=== PATIENT | male | born 1975 | race Caucasian/White ===

== ENCOUNTER 2019-07-28 20:41 | Inpatient (IN) | payer OTHER ==
[~2019-07-28] VITALS: Ht 180.3 cm; Wt 113.0 kg
[2019-07-28 20:59] LABS: BASO # 0.1 x10^3/uL (0.0-0.2); BASO % 1 % (0-3); EOS # 0.2 x10^3/uL (0.0-0.7); EOS % 1 % (0-3); HEMATOCRIT 43.9 % (39.0-53.0); HEMOGLOBIN 15.4 g/dL (13.0-17.5); LYMPH # 2.2 x10^3/uL (1.0-4.8); LYMPH % 13 % (24-48); MEAN CORPUSCULAR HEMOGLOBIN 32 pg (25-35); MEAN CORPUSCULAR HGB CONC 35 g/dL (31-37); MEAN CORPUSCULAR VOLUME 90 fL (79-100); MONO # 1.3 x10^3/uL (0.0-1.1); MONO % 8 % (0-9); NEUT # 13.6 x10^3/uL (1.8-7.7); NEUT % 78 % (31-73); PLATELET COUNT 297 x10^3/uL (140-400); RED BLOOD COUNT 4.87 x10^6/uL (4.30-5.70); RED CELL DISTRIBUTION WIDTH 13.4 % (11.5-14.5); WHITE BLOOD COUNT 17.4 x10^3/uL (4.0-11.0)
[2019-07-28] MEDS ORDERED: HEPARIN for IV BOLUS 10,000 UNIT/10 ML VIAL. IV ONE (21:00)
[2019-07-28] MEDS ORDERED: ONDANSETRON PF 4 MG/2 ML VIAL. IVP ONE (21:00)
[2019-07-28] MEDS ORDERED: ASPIRIN 325 MG TABLET PO ONE ×2 (21:00→22:30)
[2019-07-28] MEDS ORDERED: METOPROLOL TARTRATE 5 MG/5 ML VIAL. IVP ONE (21:00)
[2019-07-28] MEDS ORDERED: IV NORMAL SALINE 1000ML BAG 1,000 ML IV ONE (21:00)
[2019-07-28] MEDS ORDERED: fentaNYL PF VIAL 100 MCG/2 ML VIAL IV ONE ×3 (21:00→22:00)
--- NOTE | 2019-07-28 21:01 | PHYS DOC ---
Past Medical History Past Medical History: Alcoholism (now with sobriety), High Cholesterol, H ypertension Past Surgical History: No Surgical History Smoking Status: Current Every Day Smoker Additional Information: 1 ppd Alcohol Use: Sober Drug Use: None General Adult EDM: Chief Complaint: CHEST PAIN HPI: HPI: Patient is a 44 year old male presents with report of sudden substernal chest pain with radiation to his left arm which occurred approximately 2 hours ago. Patient reports he was working on his lawnmower in his garage at the time. Denies that he was not necessarily exerting himself. Patient reports associated diaphoresis. Reports cardiac risk factors for HTN, hyperchol, and smoking. Denies leg swelling or calf tenderness. Denies trauma. Review of Systems: Review of Systems: Constitutional: Denies fever or chills Eyes: Denies redness or eye pain HENT: Denies nasal congestion or sore throat Respiratory: Denies cough or shortness of breath Cardiovascular: Reports chest pain; denies palpitations GI: Denies abdominal pain; reports nausea : Denies dysuria or hematuria Musculoskeletal: Denies back pain or joint pain Integument: Denies rash or skin lesions; denies diaphoresis Neurologic: Denies headache, focal weakness or sensory changes Complete systems were reviewed and found to be within normal limits, except as documented in this note. Current Medications: Current Medications Medications (Trade) Dose Ordered Sig/Katarina Start Time Stop Time Status Last Admin Dose Admin Aspirin (Katelyn Aspirin) 325 mg 1X ONCE 07/28/19 21:00 07/28/19 21:01 UNV Fentanyl Citrate (Fentanyl 2ml Vial) 50 mcg 1X ONCE 07/28/19 21:00 07/28/19 21:01 UNV 07/28/19 20:58 50 MCG Heparin Sodium (Porcine) (Heparin Sodium) 4,000 unit 1X ONCE 07/28/19 21:00 07/28/19 21:01 UNV 07/28/19 20:59 4,000 UNIT Metoprolol Tartrate (Lopressor Vial) 10 mg 1X ONCE 07/28/19 21:00 07/28/19 21:01 UNV Ondansetron HCl (Zofran) 4 mg 1X ONCE 07/28/19 21:00 07/28/19 21:01 UNV 07/28/19 20:58 4 MG Sodium Chloride 1,000 ml @ 1,000 mls/hr 1X ONCE 07/28/19 21:00 07/28/19 21:59 UNV Physical Exam: PE: Constitutional: Well developed, well nourished, uncomfortable HENT: Normocephalic, atraumatic Eyes: Conjunctiva normal, no discharge Neck: Normal range of motion, no tenderness, supple Cardiovascular: Heart rate normal, regular rhythm Lungs & Thorax: Bilateral breath sounds clear to auscultation, no wheezing Abdomen: Soft, no tenderness, no guarding/rebound tenderness/distention Skin: Warm, dry, no erythema, no rash Extremities: No tenderness, ROM intact, no edema Neurologic: Alert and oriented X 3, no focal deficits noted Psychologic: Affect normal, judgment normal Current Patient Data: Vital Signs: Vital Signs Date Time Temp Pulse Resp B/P (MAP) Pulse Ox O2 Delivery O2 Flow Rate FiO2 07/28/19 20:58 20 99 Room Air EKG: EKG: @2046 NSR at 83, significant ST elevation inferior leads with reciprocal depression in V2-V4 Radiology/Procedures: Radiology/Procedures: PROCEDURE: CHEST AP ONLY CHEST AP ONLY INDICATION: Reason: chest pain / Spl. Instructions: / History: . COMPARISON STUDY: None. FINDINGS: Lungs: Normal lung volume. No pulmonary mass or consolidation. The tracheobronchial tree and hilar structures are normal. Pleura: No pleural effusion or pneumothorax. Heart and Mediastinum: The cardiomediastinal silhouette is normal. The great vessels of the thorax are normal. IMPRESSION: No acute cardiopulmonary process. Electronically signed by: Zaki Cruz MD (07/28/2019 9:32 PM) [id number] Course & Med Decision Making: Course & Med Decision Making Pertinent Labs and Imaging studies reviewed. (See chart for details) Patient presents with acute chest pain with associated nausea and diaphoresis. Significant cardiac risk factors of hypertension, hypercholesterolemia, and smoking history. EKG with obvious ST elevation in inferior leads with reciprocal changes. Code STEMI called. IV heparin and aspirin initiated. Fentanyl and Zofran provided for pain and nausea. Labs obtained and posted to chart. Chest x-ray without acute process. Discussed case with Dr. Oakes (cardiology) with plan for emergent cardiac cath. Patient requiring admission for further evaluation and treatment. Discussed with Dr. Banuelos (hospitalist) who is in agreement with admission. Discussed findings and plan with patient, who acknowledges understanding and agreement. Dragon Disclaimer: Dragon Disclaimer: This electronic medical record was generated, in whole or in part, using a voice recognition dictation system. Departure Departure Impression: Primary Impression: STEMI (ST elevation myocardial infarction) Qualified Codes: I21.3 - ST elevation (STEMI) myocardial infarction of unspecified site Disposition: ADMITTED INPATIENT Admitting Physician: AIRAM Ruiz) Condition: CRITICAL Justicifation of Admission Dx: Justifications for Admission: Justification of Admission Dx: Yes UT: Acute STEMI Critical Care Time Critical care time was 30 minutes which includes time at bedside, spent in discussion of patient's care with specialists and/or family members, with interpretation of laboratory and/or radiological studies and is exclusive of procedures. LUPILLO FORTUNE DO Jul 28, 2019 21:01
[2019-07-28 21:09] LABS: PROTHROMBIN TIME PATIENT 13.1 SEC (11.7-14.0)
[2019-07-28 21:10] LABS: CALCIUM 9.3 mg/dL (8.5-10.1); CREATININE 1.4 mg/dL (0.7-1.3); GFR 54.6; POTASSIUM 3.8 mmol/L (3.5-5.1)
[2019-07-28] MEDS ORDERED: IODIXANOL 320 MG/ML 100 ML VIAL. ONE ×2 (21:12→21:57)
[2019-07-28] MEDS ORDERED: LIDOCAINE 1% PF 2 ML VIAL. ONE (21:12)
[2019-07-28] MEDS ORDERED: fentaNYL PF VIAL 100 MCG/2 ML VIAL ONE (21:13)
[2019-07-28] MEDS ORDERED: MIDAZOLAM HCL/PF 2 MG/2 ML VIAL. ONE (21:14)
[2019-07-28] MEDS ORDERED: VERAPAMIL 5 MG/2 ML VIAL. ONE (21:14)
[2019-07-28] MEDS ORDERED: HEPARIN for IV BOLUS 10,000 UNIT/10 ML VIAL. ONE (21:14)
[2019-07-28] MEDS ORDERED: NITROGLYCERIN 200 MCG/2 ML SYRINGE FOR CATH/VASC LAB. ONE (21:14)
[2019-07-28] MEDS ORDERED: LIDOCAINE 1% Multi-Dose 20 ML VIAL. ONE (21:14)
[2019-07-28 21:16] LABS: ALBUMIN 4.2 g/dL (3.4-5.0); ALBUMIN/GLOBULIN RATIO 1.1 (1.0-1.7); MAGNESIUM 1.7 mg/dL (1.8-2.4); TOTAL BILIRUBIN 0.2 mg/dL (0.2-1.0); TOTAL PROTEIN 8.1 g/dL (6.4-8.2)
[2019-07-28 21:19] LABS: % LYMPHS 10 % (24-48); % MONOS 7 % (0-10); % SEGS 83 % (35-66); PLT ESTIMATE ADEQUATE (ADEQUATE)
[2019-07-28 21:20] LABS: TOXIC GRANULATION SLIGHT
--- NOTE | 2019-07-28 21:32 | PDOC ---
MODERATE SEDATION ASSESSMENT RISKS/ALTERNATIVES Risks/Alternatives Risks and alternatives of this type of sedation and procedure discussed with: RISK/ALTERNATIVES: Patient H & P ON CHART H & P H & P on chart and reviewed for co-morbid conditions and appropriate labs. H&P ON CHART: Yes STATUS PREG STATUS ASSESSED: N/A MEDS/ALLERGIES REVIEWED Meds/Allergies Reviewed Medications and Allergies including time and route of recently administered narcotics and sedatives. MEDS/ALLERGIES REVIEWED: Yes ASA RATING ASA RATING: III AIRWAY ASSESSMENT Airway Assessment Airway patency, oral function limitations, presence of caps, crowns, dentures, partials, and ability to extend neck assessed. AIRWAY ASSESSMENT: Yes MALLAMPATI SCORE MALLAMPATI SCORE: II PRE-SEDATION ASSESSMENT PRE-SEDATION ASSESSMENT: Yes OZIEL EDMOND MD Jul 28, 2019 21:32
--- NOTE | 2019-07-28 21:32 | PDOC2 ---
CONSULT Date of Consult Date of Consult DATE: 07/28/19 TIME: 21:32 Reason for Consult Reason for Consult: Acute STEMI Referring Physician Referring Physician: Dr. Snow Identification/Chief Complaint Chief Complaint Chest pain Source Source: Chart review, Patient History of Present Illness Reason for Visit: 44-year-old male presented with retrosternal chest pressure radiating to left arm that started 2 hours prior to presentation when he was working on lawnmower in his garage. Complained of mild shortness of breath but denied any orthopnea/PND, palpitations or syncope. He denied any previous cardiac history. Past Medical History Past Medical History Hypertension Hyperlipidemia Family History Family History Hypertension Social History Social History Patient smokes 1 pack of cigarettes daily and has a previous history of alcohol abuse but denied any drug abuse. Current Problem List Problem List Problems Medical Problems: (1) STEMI (ST elevation myocardial infarction) Status: Acute Current Medications Current Medications Current Medications Aspirin (Katelyn Aspirin) 325 mg 1X ONCE PO Last administered on 07/28/19at 21:05; Start 07/28/19 at 21:00; Stop 07/28/19 at 21:06; Status DC Sodium Chloride 1,000 ml @ 1,000 mls/hr 1X ONCE IV Last administered on 07/28/19at 21:00; Start 07/28/19 at 21:00; Stop 07/28/19 at 21:59 Fentanyl Citrate (Fentanyl 2ml Vial) 50 mcg 1X ONCE IV Last administered on 07/28/19at 20:58; Start 07/28/19 at 21:00; Stop 07/28/19 at 21:06; Status DC Heparin Sodium (Porcine) (Heparin Sodium) 4,000 unit 1X ONCE IV Last administered on 07/28/19at 20:59; Start 07/28/19 at 21:00; Stop 07/28/19 at 21:06; Status DC Ondansetron HCl (Zofran) 4 mg 1X ONCE IVP Last administered on 07/28/19at 20:58; Start 07/28/19 at 21:00; Stop 07/28/19 at 21:06; Status DC Metoprolol Tartrate (Lopressor Vial) 10 mg 1X ONCE IVP Last administered on 07/28/19at 21:04; Start 07/28/19 at 21:00; Stop 07/28/19 at 21:06; Status DC Fentanyl Citrate (Fentanyl 2ml Vial) 50 mcg 1X ONCE IV ; Start 07/28/19 at 21:30; Stop 07/28/19 at 21:31; Status DC Iodixanol (Visipaque 320) 100 ml STK-MED ONCE .ROUTE ; Start 07/28/19 at 21:12; Stop 07/28/19 at 21:12; Status DC Lidocaine HCl (Xylocaine-Mpf 1% 2ml Vial) 2 ml STK-MED ONCE .ROUTE ; Start 07/28/19 at 21:12; Stop 07/28/19 at 21:12; Status DC Heparin Sodium/ Sodium Chloride 500 ml @ As Directed STK-MED ONCE .ROUTE ; Start 07/28/19 at 21:12; Stop 07/28/19 at 21:12; Status DC Midazolam HCl (Versed) 2 mg STK-MED ONCE .ROUTE ; Start 07/28/19 at 21:14; Stop 07/28/19 at 21:14; Status DC Heparin Sodium (Porcine) (Heparin Sodium) 10,000 unit STK-MED ONCE .ROUTE ; Start 07/28/19 at 21:14; Stop 07/28/19 at 21:14; Status DC Verapamil HCl (Verapamil) 5 mg STK-MED ONCE .ROUTE ; Start 07/28/19 at 21:14; Stop 07/28/19 at 21:14; Status DC Lidocaine HCl (Lidocaine 1% 20ml Vial) 20 ml STK-MED ONCE .ROUTE ; Start 07/28/19 at 21:14; Stop 07/28/19 at 21:14; Status DC Fentanyl Citrate (Fentanyl 2ml Vial) 100 mcg STK-MED ONCE .ROUTE ; Start 07/28/19 at 21:13; Stop 07/28/19 at 21:14; Status DC Nitroglycerin (Nitroglycerin) 200 mcg STK-MED ONCE .ROUTE ; Start 07/28/19 at 21:14; Stop 07/28/19 at 21:15; Status DC Allergies Allergies: Coded Allergies: No Known Drug Allergies (Unverified , 07/28/19) ROS PSYCHOLOGICAL ROS: No: Hallucinations Eyes: No Loss of vision HEENT: No: Epistaxis Respiratory: YES: Shortness of breath; No: Hemoptysis Cardiovascular: yes Chest Pain; No Palpitations Gastrointestinal: No Vomiting Genitourinary: No Hematuria Neurological: No Seizures Skin: No Rash Physical Exam General: Alert, Oriented X3 HEENT: Atraumatic Lungs: Clear to auscultation Heart: Regular rate Abdomen: Soft Extremities: No edema Neuro: Normal speech Psych/Mental Status: Mood NL Vitals VITALS Vital Signs Date Time Temp Pulse Resp B/P (MAP) Pulse Ox O2 Delivery O2 Flow Rate FiO2 07/28/19 21:04 80 193/126 07/28/19 20:58 20 99 Room Air Labs Labs Laboratory Tests Test 07/28/19 20:50 White Blood Count 17.4 x10^3/uL (4.0-11.0) Red Blood Count 4.87 x10^6/uL (4.30-5.70) Hemoglobin 15.4 g/dL (13.0-17.5) Hematocrit 43.9 % (39.0-53.0) Mean Corpuscular Volume 90 fL (79-100) Mean Corpuscular Hemoglobin 32 pg (25-35) Mean Corpuscular Hemoglobin Concent 35 g/dL (31-37) Red Cell Distribution Width 13.4 % (11.5-14.5) Platelet Count 297 x10^3/uL (140-400) Neutrophils (%) (Auto) 78 % (31-73) Lymphocytes (%) (Auto) 13 % (24-48) Monocytes (%) (Auto) 8 % (0-9) Eosinophils (%) (Auto) 1 % (0-3) Basophils (%) (Auto) 1 % (0-3) Neutrophils # (Auto) 13.6 x10^3/uL (1.8-7.7) Lymphocytes # (Auto) 2.2 x10^3/uL (1.0-4.8) Monocytes # (Auto) 1.3 x10^3/uL (0.0-1.1) Eosinophils # (Auto) 0.2 x10^3/uL (0.0-0.7) Basophils # (Auto) 0.1 x10^3/uL (0.0-0.2) Segmented Neutrophils % 83 % (35-66) Lymphocytes % 10 % (24-48) Monocytes % 7 % (0-10) Toxic Granulation Slight Platelet Estimate Adequate (ADEQUATE) Prothrombin Time 13.1 SEC (11.7-14.0) Prothromb Time International Ratio 1.0 (0.8-1.1) Activated Partial Thromboplast Time 33 SEC (24-38) Sodium Level 138 mmol/L (136-145) Potassium Level 3.8 mmol/L (3.5-5.1) Chloride Level 99 mmol/L (98-107) Carbon Dioxide Level 24 mmol/L (21-32) Anion Gap 15 (6-14) Blood Urea Nitrogen 19 mg/dL (8-26) Creatinine 1.4 mg/dL (0.7-1.3) Estimated GFR (Cockcroft-Gault) 54.6 BUN/Creatinine Ratio 14 (6-20) Glucose Level 163 mg/dL (70-99) Calcium Level 9.3 mg/dL (8.5-10.1) Magnesium Level 1.7 mg/dL (1.8-2.4) Total Bilirubin 0.2 mg/dL (0.2-1.0) Aspartate Amino Transf (AST/SGOT) 28 U/L (15-37) Alanine Aminotransferase (ALT/SGPT) 62 U/L (16-63) Alkaline Phosphatase 142 U/L (46-116) Creatine Kinase 213 U/L (39-308) Creatine Kinase MB (Mass) 2.8 ng/mL (0.0-3.6) Creatine Kinase MB Relative Index 1.3 % (0-4) Troponin I Quantitative 0.066 ng/mL (0.000-0.055) HL-Adj-O-Type Natriuretic Peptide 38 pg/mL (0-124) Total Protein 8.1 g/dL (6.4-8.2) Albumin 4.2 g/dL (3.4-5.0) Albumin/Globulin Ratio 1.1 (1.0-1.7) Lipase 72 U/L (73-393) Laboratory Tests Test 07/28/19 20:50 White Blood Count 17.4 x10^3/uL (4.0-11.0) Red Blood Count 4.87 x10^6/uL (4.30-5.70) Hemoglobin 15.4 g/dL (13.0-17.5) Hematocrit 43.9 % (39.0-53.0) Mean Corpuscular Volume 90 fL (79-100) Mean Corpuscular Hemoglobin 32 pg (25-35) Mean Corpuscular Hemoglobin Concent 35 g/dL (31-37) Red Cell Distribution Width 13.4 % (11.5-14.5) Platelet Count 297 x10^3/uL (140-400) Neutrophils (%) (Auto) 78 % (31-73) Lymphocytes (%) (Auto) 13 % (24-48) Monocytes (%) (Auto) 8 % (0-9) Eosinophils (%) (Auto) 1 % (0-3) Basophils (%) (Auto) 1 % (0-3) Neutrophils # (Auto) 13.6 x10^3/uL (1.8-7.7) Lymphocytes # (Auto) 2.2 x10^3/uL (1.0-4.8) Monocytes # (Auto) 1.3 x10^3/uL (0.0-1.1) Eosinophils # (Auto) 0.2 x10^3/uL (0.0-0.7) Basophils # (Auto) 0.1 x10^3/uL (0.0-0.2) Segmented Neutrophils % 83 % (35-66) Lymphocytes % 10 % (24-48) Monocytes % 7 % (0-10) Toxic Granulation Slight Platelet Estimate Adequate (ADEQUATE) Prothrombin Time 13.1 SEC (11.7-14.0) Prothromb Time International Ratio 1.0 (0.8-1.1) Activated Partial Thromboplast Time 33 SEC (24-38) Sodium Level 138 mmol/L (136-145) Potassium Level 3.8 mmol/L (3.5-5.1) Chloride Level 99 mmol/L (98-107) Carbon Dioxide Level 24 mmol/L (21-32) Anion Gap 15 (6-14) Blood Urea Nitrogen 19 mg/dL (8-26) Creatinine 1.4 mg/dL (0.7-1.3) Estimated GFR (Cockcroft-Gault) 54.6 BUN/Creatinine Ratio 14 (6-20) Glucose Level 163 mg/dL (70-99) Calcium Level 9.3 mg/dL (8.5-10.1) Magnesium Level 1.7 mg/dL (1.8-2.4) Total Bilirubin 0.2 mg/dL (0.2-1.0) Aspartate Amino Transf (AST/SGOT) 28 U/L (15-37) Alanine Aminotransferase (ALT/SGPT) 62 U/L (16-63) Alkaline Phosphatase 142 U/L (46-116) Creatine Kinase 213 U/L (39-308) Creatine Kinase MB (Mass) 2.8 ng/mL (0.0-3.6) Creatine Kinase MB Relative Index 1.3 % (0-4) Troponin I Quantitative 0.066 ng/mL (0.000-0.055) GS-Zbo-D-Type Natriuretic Peptide 38 pg/mL (0-124) Total Protein 8.1 g/dL (6.4-8.2) Albumin 4.2 g/dL (3.4-5.0) Albumin/Globulin Ratio 1.1 (1.0-1.7) Lipase 72 U/L (73-393) Assessment/Plan Assessment/Plan 1. Acute inferoposterior wall myocardial infarction based on clinical presentation and EKG findings. Patient has ongoing chest pain. We will proceed with emergent cardiac catheterization and primary PCI/stent placement. Risks a nd benefits were explained and he is agreeable. Start aspirin, heparin, beta- blockers and statins. 2. Hypertension: Well-controlled 3. Hyperlipidemia: Continue statin therapy 4. Tobacco abuse: Advised on smoking cessation Thank you for your consultation OZIEL EDMOND MD Jul 28, 2019 21:32
--- NOTE | 2019-07-28 21:35 | RAD ---
CHEST AP ONLY INDICATION: Reason: chest pain / Spl. Instructions: / History: . COMPARISON STUDY: None. FINDINGS: Lungs: Normal lung volume. No pulmonary mass or consolidation. The tracheobronchial tree and hilar structures are normal. Pleura: No pleural effusion or pneumothorax. Heart and Mediastinum: The cardiomediastinal silhouette is normal. The great vessels of the thorax are normal. IMPRESSION: No acute cardiopulmonary process. Electronically signed by: Zaki Cruz MD (07/28/2019 9:32 PM) [id number]
[2019-07-28] MEDS ORDERED: BIVALIRUDIN 250 MG VIAL. IV ONE ×3 (21:40→22:30)
[2019-07-28] MEDS ORDERED: MIDAZOLAM HCL/PF 2 MG/2 ML VIAL. IV ONE (22:00)
[2019-07-28] MEDS ORDERED: LIDOCAINE 1% Multi-Dose 20 ML VIAL. INJ ONE (22:00)
[2019-07-28] MEDS ORDERED: IODIXANOL 320 MG/ML 100 ML VIAL. IART ONE (22:00)
[2019-07-28] MEDS ORDERED: TICAGRELOR 90 MG TABLET. ONE (22:14)
[2019-07-28] MEDS ORDERED: ASPIRIN 325 MG TABLET ONE (22:15)
[2019-07-28] MEDS ORDERED: NITROGLYCERIN SUBLINGUAL 0.4 MG BOTTLE OF 25. SL PRN (22:15)
[2019-07-28] MEDS ORDERED: 0.9 % SODIUM CHLORIDE 10 ML DISP.SYRIN. IV PRN (22:15)
[2019-07-28] MEDS ORDERED: ACETAMINOPHEN 325 MG TABLET. PO PRN (22:15)
[2019-07-28 22:30] VITALS: BP 119/81
[2019-07-28] MEDS ORDERED: TICAGRELOR 90 MG TABLET. PO ONE (22:30)
[2019-07-28 22:45] VITALS: BP 125/82
--- NOTE | 2019-07-28 22:45 | NUR ---
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 A/Ox4, follows commands and answers admission questions appropriately. at bedside and given patient passcode. Pt oriented to room and educated on POC. Cath site to right groin is soft, no bleeding observed, dressing c/d/i. Complains of headache at this time but no further complaints.
[2019-07-28 23:00] VITALS: BP_SYST 110; BP_SYST 125; BP_DIAS 77; BP_DIAS 78
[2019-07-28] MEDS ORDERED: OMEP20TA63 PO (23:07)
[2019-07-28] MEDS ORDERED: ALLO100T PO (23:07)
[2019-07-28] MEDS ORDERED: ACET500T68 PO (23:07)
[2019-07-28] MEDS ORDERED: ATOR10TA PO (23:07)
[2019-07-28] MEDS ORDERED: TADA5TAB PO (23:07)
[2019-07-28] MEDS ORDERED: LISI10TA2 PO (23:07)
[2019-07-28] MEDS ORDERED: MELO15TA23 PO (23:07)
[2019-07-28] MEDS ORDERED: DULO60CA45 PO (23:07)
[2019-07-28] MEDS ORDERED: HYDR-2145 PO (23:07)
[2019-07-28 23:15] VITALS: BP 125/78
[2019-07-28] MEDS: IV 1/2 NORMAL SALINE 1,000 ML IV SCH (23:29)
[2019-07-28 23:30] VITALS: BP 123/77
[2019-07-29] VITALS (16 sets, daily range): BP systolic 95–126; BP diastolic 62–82
--- NOTE | 2019-07-29 01:08 | NUR ---
Right groin site continues to be soft, no bleeding observed with dressing c/d/i.
--- NOTE | 2019-07-29 06:26 | EKG ---
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
[2019-07-29] MEDS: TICAGRELOR 90 MG TABLET. PO SCH ×2 (08:13→21:16)
[2019-07-29] MEDS: ASPIRIN ENTERIC COATED 81 MG TABLET.DR. PO SCH (08:13)
[2019-07-29] MEDS: METOPROLOL TART IMMED RELEASE 25 MG TABLET. PO SCH ×2 (08:13→21:19)
[2019-07-29] MEDS: IV 1/2 NORMAL SALINE 1,000 ML IV SCH ×2 (08:14→22:54)
--- NOTE | 2019-07-29 08:36 | CARD ---
MR#: [id number] Date of Study: 07/28/2019 Ordering Physician: OZIEL EDMOND, Referring Physician: OZIEL EDMOND Tech: MAURIZIO GONCALVES RTR APPROVED REPORT Technologist: MAURIZIO GONCALVES RTR Nurse: CARMEN WELDON RN Procedure(s) performed: 1. Left heart catheterization, selective coronary angiography and left ventr iculography 2. Successful PCI/drug-eluting stent placement to the right coronary artery MODERATE SEDATION TIME: 60 MINUTES FLUORO TIME: 11.1 MIN DOSE: 91.1 GYCM2 CONTRAST: 183CC VISI INDICATION The indication(s) include : Acute inferoposterior wall ST elevation myocardial infarction. CSHA Clinical Frailty Scale CS Clinical Frailty Scale: Managing Well Heart Failure Heart Failure: No PROCEDURE NARRATIVE After explaining the risks, benefits and alternative options, informed consent was obtained for patie nt. Patient was brought to the cardiac Specification Manager and his right groin was prepped and draped in the us ual fashion. 20 cc of 2% lidocaine was infiltrated into the skin and subcutaneous tissues for local anesthesia. Arterial access was obtained in the right common femoral artery and a 6 Surinamese sheath wa s inserted. 6 Surinamese JL4 diagnostic and 6 Surinamese JR4 guide catheters were used to perform selective angiography of the left and right coronary arteries. 6 Surinamese pigtail catheter was used to perform l eft ventriculography at the end of procedure. The following findings were noted: FINDINGS 1. Hemodynamics: Left ventricular end-diastolic pressure 18 mmHg. No pullback gradient across the a ortic valve. 2. Left ventriculography: Posterobasal wall hypokinesis with ejection fraction estimated at 55%. No significant mitral regurgitation seen. 3. Coronary angiography: a. The left main coronary artery arose from the left sinus of Valsalva, gave rise to the left anteri or descending and left circumflex arteries and did not show any significant stenosis. b. The left anterior descending artery did not show any significant stenosis. c. The left circumflex artery did not show any significant stenosis. d. The right coronary artery arose from the right sinus of Valsalva and showed 100% occlusion in the midsegment. INTERVENTION The right coronary artery was engaged with a 6 Surinamese JR4 guide catheter. The complete occlusion in the midsegment was crossed with a 0.014 inch ClipCard pro-water guidewire. This was predilated with a 2 .5 x 12 mm Euphora balloon and treated successfully with overlapping 3.0 x 38 mm and 3.5 x 12 mm reso lute Raffi drug-eluting stents. Follow-up angiography showed resolution of the stenosis to 0% with TI MT-3 distal flow. Patient tolerated the procedure well. Hemostasis was achieved using mynx closure device. There were no immediate complications. LUDIVINA Flow LUDIVINA Flow (Pre-Intervention): LUDIVINA-0 LUDIVINA Flow (Post-Intervention): LUDIVINA-3 Conclusion 1. Severe single-vessel coronary disease involving the right coronary artery 2. Successful PCI/drug-eluting stents placement to the right coronary artery 3. Posterobasal wall hypokinesis with ejection fraction estimated at 55% Recommendations 1. Aspirin 81 mg daily 2. Ticagrelor 90 mg twice daily 3. Cardiovascular risk factor modification 4. Cardiac rehabilitation referral Signed by : Oziel Edmond, Electronically Approved : 07/29/2019 08:35:45
--- NOTE | 2019-07-29 08:55 | EKG ---
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
--- NOTE | 2019-07-29 09:50 | PDOC1 ---
History and Physical Date of Admission Date of Admission DATE: 07/29/19 TIME: 09:49 Identification/Chief Complaint Chief Complaint SEEN IN ER WITH ACUTE STEMI 44 year old male presents with report of sudden substernal chest pain with radiation to his left arm Patient reports he was working on his lawnmower in his garage at the time. reported associated diaphoresis. //cardiac risk factors for HTN, hyperchol, and smoking. Denies leg swelling or calf tenderness. Denies trauma. 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 Past Medical History Past Medical History Past Medical History Past Medical History: Alcoholism (now with sobriety), High Cholesterol, Hypertension Past Surgical History: No Surgical History Smoking Status: Current Every Day Smoker Additional Information: 1 ppd Alcohol Use: Sober Drug Use: None FHX OBESITY Cardiovascular: HTN, Hyperlipidemia Psych: Addictions Family History Family History: Alcohol Abuse, High Cholestrol, Hypertension Social History Smoke: <1 pack per day ALCOHOL: other (sober now) Drugs: None Current Problem List Problem List Problems Medical Problems: (1) STEMI (ST elevation myocardial infarction) Status: Acute Current Medications Current Medications Current Medications Aspirin (Katelyn Aspirin) 325 mg 1X ONCE PO Last administered on 07/28/19at 21:05; Start 07/28/19 at 21:00; Stop 07/28/19 at 21:06; Status DC Sodium Chloride 1,000 ml @ 1,000 mls/hr 1X ONCE IV Last administered on 07/28/19at 21:00; Start 07/28/19 at 21:00; Stop 07/28/19 at 22:06; Status DC Fentanyl Citrate (Fentanyl 2ml Vial) 50 mcg 1X ONCE IV Last administered on 07/28/19at 20:58; Start 07/28/19 at 21:00; Stop 07/28/19 at 21:06; Status DC Heparin Sodium (Porcine) (Heparin Sodium) 4,000 unit 1X ONCE IV Last administered on 07/28/19at 20:59; Start 07/28/19 at 21:00; Stop 07/28/19 at 21:06; Status DC Ondansetron HCl (Zofran) 4 mg 1X ONCE IVP Last administered on 07/28/19at 20:58; Start 07/28/19 at 21:00; Stop 07/28/19 at 21:06; Status DC Metoprolol Tartrate (Lopressor Vial) 10 mg 1X ONCE IVP Last administered on 07/28/19at 21:04; Start 07/28/19 at 21:00; Stop 07/28/19 at 21:06; Status DC Fentanyl Citrate (Fentanyl 2ml Vial) 50 mcg 1X ONCE IV Last administered on 07/28/19at 21:18; Start 07/28/19 at 21:30; Stop 07/28/19 at 21:31; Status DC Iodixanol (Visipaque 320) 100 ml STK-MED ONCE .ROUTE ; Start 07/28/19 at 21:12; Stop 07/28/19 at 21:12; Status DC Lidocaine HCl (Xylocaine-Mpf 1% 2ml Vial) 2 ml STK-MED ONCE .ROUTE ; Start 07/27 at 21:12; Stop 07/28/19 at 21:12; Status DC Heparin Sodium/ Sodium Chloride 500 ml @ As Directed STK-MED ONCE .ROUTE ; St art 07/28/19 at 21:12; Stop 07/28/19 at 21:12; Status DC Midazolam HCl (Versed) 2 mg STK-MED ONCE .ROUTE ; Start 07/28/19 at 21:14; Stop 07/28/19 at 21:14; Status DC Heparin Sodium (Porcine) (Heparin Sodium) 10,000 unit STK-MED ONCE .ROUTE ; Start 07/28/19 at 21:14; Stop 07/28/19 at 21:14; Status DC Verapamil HCl (Verapamil) 5 mg STK-MED ONCE .ROUTE ; Start 07/28/19 at 21:14; Stop 07/28/19 at 21:14; Status DC Lidocaine HCl (Lidocaine 1% 20ml Vial) 20 ml STK-MED ONCE .ROUTE ; Start 07/28/19 at 21:14; Stop 07/28/19 at 21:14; Status DC Fentanyl Citrate (Fentanyl 2ml Vial) 100 mcg STK-MED ONCE .ROUTE ; Start 07/28/19 at 21:13; Stop 07/28/19 at 21:14; Status DC Nitroglycerin (Nitroglycerin) 200 mcg STK-MED ONCE .ROUTE ; Start 07/28/19 at 21:14; Stop 07/28/19 at 21:15; Status DC Bivalirudin (Angiomax) 250 mg STK-MED ONCE IV ; Start 07/28/19 at 21:40; Stop 07/28/19 at 21:40; Status DC Heparin Sodium/ Sodium Chloride (HEPARIN for ARTERIAL LINE FLUSH) 1,000 unit 1X ONCE IART Last administered on 07/28/19at 22:00; Start 07/28/19 at 22:00; Stop 07/28/19 at 22:06; Status DC Heparin Sodium/ Sodium Chloride (HEPARIN for ARTERIAL LINE FLUSH) 1,000 unit 1X ONCE IART Last administered on 07/28/19at 22:00; Start 07/28/19 at 22:00; Stop 07/28/19 at 22:06; Status DC Midazolam HCl (Versed) 2 mg 1X ONCE IV Last administered on 07/28/19at 22:00; Start 07/28/19 at 22:00; Stop 07/28/19 at 22:06; Status DC Fentanyl Citrate (Fentanyl 2ml Vial) 100 mcg 1X ONCE IV Last administered on 07/28/19at 22:00; Start 07/28/19 at 22:00; Stop 07/28/19 at 22:06; Status DC Iodixanol (Visipaque 320) 100 ml 1X ONCE IART Last administered on 07/28/19at 22:00; Start 07/28/19 at 22:00; Stop 07/28/19 at 22:06; Status DC Lidocaine HCl (Lidocaine 1% 20ml Vial) 20 ml 1X ONCE INJ Last administered on 07/28/19at 22:00; Start 07/28/19 at 22:00; Stop 07/28/19 at 22:06; Status DC Iodixanol (Visipaque 320) 100 ml STK-MED ONCE .ROUTE ; Start 07/28/19 at 21:57; Stop 07/28/19 at 21:58; Status DC Ticagrelor (Brilinta) 180 mg 1X ONCE PO Last administered on 07/28/19at 22:28; Start 07/28/19 at 22:30; Stop 07/28/19 at 22:31; Status DC Aspirin (Katelyn Aspirin) 325 mg 1X ONCE PO Last administered on 07/28/19at 22:28; Start 07/28/19 at 22:30; Stop 07/28/19 at 22:31; Status DC Bivalirudin (Angiomax) 250 mg STK-MED ONCE IV ; Start 07/28/19 at 22:06; Stop 07/28/19 at 22:06; Status DC Bivalirudin (Angiomax) 250 mg 1X ONCE IV Last administered on 07/28/19at 22:19; Start 07/28/19 at 22:30; Stop 07/28/19 at 22:31; Status DC Ticagrelor (Brilinta) 90 mg STK-MED ONCE .ROUTE ; Start 07/28/19 at 22:14; Stop 07/28/19 at 22:15; Status DC Aspirin (Katelyn Aspirin) 325 mg STK-MED ONCE .ROUTE ; Start 07/28/19 at 22:15; Stop 07/28/19 at 22:15; Status DC Sodium Chloride (Normal Saline Flush) 3 ml QSHIFT PRN IV AFTER MEDS AND BLOOD DRAWS; Start 07/28/19 at 22:15 Sodium Chloride 1,000 ml @ 100 mls/hr Q10H IV Last administered on 07/29/19at 08:14; Start 07/28/19 at 22:15 Aspirin (Ecotrin) 81 mg DAILYWBKFT PO Last administered on 07/29/19at 08:13; Start 07/29/19 at 08:00 Ticagrelor (Brilinta) 90 mg BID PO Last administered on 07/29/19at 08:13; Start 07/29/19 at 09:00 Metoprolol Tartrate (Lopressor) 12.5 mg BID PO Last administered on 07/29/19at 08:13; Start 07/29/19 at 09:00 Atorvastatin Calcium (Lipitor) 40 mg QHS PO ; Start 07/29/19 at 21:00 Acetaminophen (Tylenol) 650 mg PRN Q6HRS PRN PO MILD PAIN / TEMP > 100.3'F Last administered on 07/29/19at 04:58; Start 07/28/19 at 22:15 Nitroglycerin (Nitrostat) 0.4 mg PRN Q5MIN PRN SL CHEST PAIN; Start 07/28/19 at 22:15 Active Scripts Active Reported Acetaminophen 500 Mg Tablet 2 Tab PO PRN BID PRN 30 Days Prilosec Otc (Omeprazole Magnesium) 20 Mg Tablet. 20 Mg PO DAILY Cialis (Tadalafil) 5 Mg Tablet 1 Tab PO DAILY Duloxetine Hcl 60 Mg Capsule.dr 60 Mg PO DAILY Meloxicam 15 Mg Tablet 15 Mg PO DAILY Lipitor (Atorvastatin Calcium) 10 Mg Tablet 1 Tab PO DAILY Lisinopril 10 Mg Tablet 1 Tab PO DAILY Hydrochlorothiazide Tablet (Hydrochlorothiazide) 25 Mg Tablet 25 Mg PO DAILY Allopurinol 100 Mg Tablet 1 Tab PO DAILY Allergies Allergies: Coded Allergies: No Known Drug Allergies (Unverified , 07/28/19) ROS Review of System Constitutional: Denies fever or chills Eyes: Denies redness or eye pain HENT: Denies nasal congestion or sore throat Respiratory: Denies cough or shortness of breath Cardiovascular: Reports chest pain; denies palpitations GI: Denies abdominal pain; reports nausea : Denies dysuria or hematuria Musculoskeletal: Denies back pain or joint pain Integument: Denies rash or skin lesions; denies diaphoresis Neurologic: Denies headache, focal weakness or sensory changes 14 pt systems were reviewed and found to be within normal limits, except as documented General: No: Chills, Night Sweats, Fatigue, Malaise, Appetite, Other PSYCHOLOGICAL ROS: No: Anxiety, Behavioral Disorder, Concentration difficultie, Decreased libido, Depression, Disorientation, Hallucinations, Hostility, Irri tablity, Memory difficulties, Mood Swings, Obsessive thoughts, Physical abuse, Sexual abuse, Sleep disturbances, Suicidal ideation, Other HEENT: No: Heacaches, Visual Changes, Hearing change, Nasal congestion, Nasal discharge, Oral lesions, Sinus pain, Sore Throat, Epistaxis, Sneezing, Snoring, Tinnitus, Vertigo, Vocal changes, Other ALLERGY AND IMMUNOLOGY: No: Hives, Insect Bite Sensitivity, Itchy/Watery Eyes, Nasal Congestion, Post Nasal Drip, Seasonal Allergies, Other Hematological and Lymphatic: No: Bleeding Problems, Blood Clots, Blood Transfusions, Brusing, Night Sweats, Pallor, Swollen Lymph Nodes, Other Cardiovascular: yes Chest Pain; No Palpitations, No Orthopnea, No Paroxysmal Noc. Dyspnea, No Edema, No Lt Headedness, No Other Gastrointestinal: Yes Nausea; No Vomiting, No Abdominal Pain, No Diarrhea, No Constipation, No Melena, No Hematochezia, No Other Genitourinary: No Dysuria, No Frequency, No Incontinence, No Hematuria, No Retention, No Discharge, No Urgency, No Pain, No Flank Pain, No Other, No , No , No , No , No , No , No Musculoskeletal: No Gait Disturbance, No Joint Pain, No Joint Stiffness, No Joint Swelling, No Muscle Pain, No Muscular Weakness, No Pain In:, No Swelling In:, No Other Neurological: No Behavorial Changes, No Bowel/Bladder ControlChng, No Confusion, No Dizziness, No Gait Disturbance, No Headaches, No Impaired Coord/balance, No Memory Loss, No Numbness/Tingling, No Seizures, No Speech Problems, No Tremors, No Visual Changes, No Weakness, No Other Skin: No Dry Skin, No Eczema, No Hair Changes, No Lumps, No Mole Changes, No Mottling, No Nail Changes, No Pruritus, No Rash, No Skin Lesion Changes, No Other, No Acne Physical Exam Physical Exam Constitutional: Well developed, well nourished, uncomfortable HENT: Normocephalic, atraumatic Eyes: Conjunctiva normal, no discharge Neck: Normal range of motion, no tenderness, supple Cardiovascular: Heart rate normal, regular rhythm Lungs & Thorax: Bilateral breath sounds clear to auscultation, no wheezing Abdomen: Soft, no tenderness, no guarding/rebound tenderness/distention Skin: Warm, dry, no erythema, no rash Extremities: No tenderness, ROM intact, no edema Neurologic: Alert and oriented X 3, no focal deficits noted Psychologic: Affect normal, judgment normal General: Alert, Oriented X3, Cooperative, No acute distress HEENT: EOMI, Mucous membr. moist/pink Lungs: Clear to auscultation, Normal air movement Heart: S1S2, RRR, no thrills, no gallops, no murmurs Breasts: Not examined Abdomen: Normal bowel sounds, Soft Rectal Exam: not examined Extremities: No cyanosis, No edema Neuro: Normal speech, Normal tone, Cranial nerves 3-12 NL Psych/Mental Status: Mental status NL, Mood NL Vitals Vitals Vital Signs Date Time Temp Pulse Resp B/P (MAP) Pulse Ox O2 Delivery O2 Flow Rate FiO2 07/29/19 09:10 63 18 105/71 (82) 96 Room Air 07/29/19 07:20 98.7 98.7 07/28/19 22:30 3.0 Labs Labs Laboratory Tests Test 07/28/19 20:50 White Blood Count 17.4 x10^3/uL (4.0-11.0) Red Blood Count 4.87 x10^6/uL (4.30-5.70) Hemoglobin 15.4 g/dL (13.0-17.5) Hematocrit 43.9 % (39.0-53.0) Mean Corpuscular Volume 90 fL (79-100) Mean Corpuscular Hemoglobin 32 pg (25-35) Mean Corpuscular Hemoglobin Concent 35 g/dL (31-37) Red Cell Distribution Width 13.4 % (11.5-14.5) Platelet Count 297 x10^3/uL (140-400) Neutrophils (%) (Auto) 78 % (31-73) Lymphocytes (%) (Auto) 13 % (24-48) Monocytes (%) (Auto) 8 % (0-9) Eosinophils (%) (Auto) 1 % (0-3) Basophils (%) (Auto) 1 % (0-3) Neutrophils # (Auto) 13.6 x10^3/uL (1.8-7.7) Lymphocytes # (Auto) 2.2 x10^3/uL (1.0-4.8) Monocytes # (Auto) 1.3 x10^3/uL (0.0-1.1) Eosinophils # (Auto) 0.2 x10^3/uL (0.0-0.7) Basophils # (Auto) 0.1 x10^3/uL (0.0-0.2) Segmented Neutrophils % 83 % (35-66) Lymphocytes % 10 % (24-48) Monocytes % 7 % (0-10) Toxic Granulation Slight Platelet Estimate Adequate (ADEQUATE) Prothrombin Time 13.1 SEC (11.7-14.0) Prothromb Time International Ratio 1.0 (0.8-1.1) Activated Partial Thromboplast Time 33 SEC (24-38) Sodium Level 138 mmol/L (136-145) Potassium Level 3.8 mmol/L (3.5-5.1) Chloride Level 99 mmol/L (98-107) Carbon Dioxide Level 24 mmol/L (21-32) Anion Gap 15 (6-14) Blood Urea Nitrogen 19 mg/dL (8-26) Creatinine 1.4 mg/dL (0.7-1.3) Estimated GFR (Cockcroft-Gault) 54.6 BUN/Creatinine Ratio 14 (6-20) Glucose Level 163 mg/dL (70-99) Calcium Level 9.3 mg/dL (8.5-10.1) Magnesium Level 1.7 mg/dL (1.8-2.4) Total Bilirubin 0.2 mg/dL (0.2-1.0) Aspartate Amino Transf (AST/SGOT) 28 U/L (15-37) Alanine Aminotransferase (ALT/SGPT) 62 U/L (16-63) Alkaline Phosphatase 142 U/L (46-116) Creatine Kinase 213 U/L (39-308) Creatine Kinase MB (Mass) 2.8 ng/mL (0.0-3.6) Creatine Kinase MB Relative Index 1.3 % (0-4) Troponin I Quantitative 0.066 ng/mL (0.000-0.055) MK-Dzh-I-Type Natriuretic Peptide 38 pg/mL (0-124) Total Protein 8.1 g/dL (6.4-8.2) Albumin 4.2 g/dL (3.4-5.0) Albumin/Globulin Ratio 1.1 (1.0-1.7) Lipase 72 U/L (73-393) Laboratory Tests Test 07/28/19 20:50 White Blood Count 17.4 x10^3/uL (4.0-11.0) Red Blood Count 4.87 x10^6/uL (4.30-5.70) Hemoglobin 15.4 g/dL (13.0-17.5) Hematocrit 43.9 % (39.0-53.0) Mean Corpuscular Volume 90 fL (79-100) Mean Corpuscular Hemoglobin 32 pg (25-35) Mean Corpuscular Hemoglobin Concent 35 g/dL (31-37) Red Cell Distribution Width 13.4 % (11.5-14.5) Platelet Count 297 x10^3/uL (140-400) Neutrophils (%) (Auto) 78 % (31-73) Lymphocytes (%) (Auto) 13 % (24-48) Monocytes (%) (Auto) 8 % (0-9) Eosinophils (%) (Auto) 1 % (0-3) Basophils (%) (Auto) 1 % (0-3) Neutrophils # (Auto) 13.6 x10^3/uL (1.8-7.7) Lymphocytes # (Auto) 2.2 x10^3/uL (1.0-4.8) Monocytes # (Auto) 1.3 x10^3/uL (0.0-1.1) Eosinophils # (Auto) 0.2 x10^3/uL (0.0-0.7) Basophils # (Auto) 0.1 x10^3/uL (0.0-0.2) Segmented Neutrophils % 83 % (35-66) Lymphocytes % 10 % (24-48) Monocytes % 7 % (0-10) Toxic Granulation Slight Platelet Estimate Adequate (ADEQUATE) Prothrombin Time 13.1 SEC (11.7-14.0) Prothromb Time International Ratio 1.0 (0.8-1.1) Activated Partial Thromboplast Time 33 SEC (24-38) Sodium Level 138 mmol/L (136-145) Potassium Level 3.8 mmol/L (3.5-5.1) Chloride Level 99 mmol/L (98-107) Carbon Dioxide Level 24 mmol/L (21-32) Anion Gap 15 (6-14) Blood Urea Nitrogen 19 mg/dL (8-26) Creatinine 1.4 mg/dL (0.7-1.3) Estimated GFR (Cockcroft-Gault) 54.6 BUN/Creatinine Ratio 14 (6-20) Glucose Level 163 mg/dL (70-99) Calcium Level 9.3 mg/dL (8.5-10.1) Magnesium Level 1.7 mg/dL (1.8-2.4) Total Bilirubin 0.2 mg/dL (0.2-1.0) Aspartate Amino Transf (AST/SGOT) 28 U/L (15-37) Alanine Aminotransferase (ALT/SGPT) 62 U/L (16-63) Alkaline Phosphatase 142 U/L (46-116) Creatine Kinase 213 U/L (39-308) Creatine Kinase MB (Mass) 2.8 ng/mL (0.0-3.6) Creatine Kinase MB Relative Index 1.3 % (0-4) Troponin I Quantitative 0.066 ng/mL (0.000-0.055) NI-Gcv-S-Type Natriuretic Peptide 38 pg/mL (0-124) Total Protein 8.1 g/dL (6.4-8.2) Albumin 4.2 g/dL (3.4-5.0) Albumin/Globulin Ratio 1.1 (1.0-1.7) Lipase 72 U/L (73-393) Images Images Technologist: MAURIZIO GONCALVES RTR Nurse: CARMEN WELDON RN Procedure(s) performed: 1. Left heart catheterization, selective coronary angiography and left ventriculography 2. Successful PCI/drug-eluting stent placement to the right coronary artery MODERATE SEDATION TIME: 60 MINUTES FLUORO TIME: 11.1 MIN DOSE: 91.1 GYCM2 CONTRAST: 183CC VISI INDICATION The indication(s) include : Acute inferoposterior wall ST elevation myocardial infarction. CSHA Clinical Frailty Scale CSHA Clinical Frailty Scale: Managing Well Heart Failure Heart Failure: No PROCEDURE NARRATIVE After explaining the risks, benefits and alternative options, informed consent was obtained for patient. Patient was brought to the cardiac Foot Press Operator and his right groin was prepped and draped in the usual fashion. 20 cc of 2% lidocaine was infiltrated into the skin and subcutaneous tissues for local anesthesia. Arterial access was obtained in the right common femoral artery and a 6 Taiwanese sheath was inserted. 6 Taiwanese JL4 diagnostic and 6 Taiwanese JR4 guide catheters were used to perform selective angiography of the left and right coronary arteries. 6 Taiwanese pigtail catheter was used to perform left ventriculography at the end of procedure. The following findings were noted: FINDINGS 1. Hemodynamics: Left ventricular end-diastolic pressure 18 mmHg. No pullback gradient across the aortic valve. 2. Left ventriculography: Posterobasal wall hypokinesis with ejection fraction estimated at 55%. No significant mitral regurgitation seen. 3. Coronary angiography: a. The left main coronary artery arose from the left sinus of Valsalva, gave rise to the left anterior descending and left circumflex arteries and did not show any significant stenosis. b. The left anterior descending artery did not show any significant stenosis. c. The left circumflex artery did not show any significant stenosis. d. The right coronary artery arose from the right sinus of Valsalva and showed 100% occlusion in the midsegment. INTERVENTION The right coronary artery was engaged with a 6 Taiwanese JR4 guide catheter. The complete occlusion in the midsegment was crossed with a 0.014 inch [employer] pro- water guidewire. This was predilated with a 2.5 x 12 mm Euphora balloon and treated successfully with overlapping 3.0 x 38 mm and 3.5 x 12 mm resolute Raffi drug-eluting stents. Follow-up angiography showed resolution of the stenosis to 0% with LUDIVINA-3 distal flow. Patient tolerated the procedure well. Hemostasis was achieved using mynx closure device. There were no immediate complications. LUDIVINA Flow LUDIVINA Flow (Pre-Intervention): LUDIVINA-0 LUDIVINA Flow (Post-Intervention): LUDIVINA-3 Conclusion 1. Severe single-vessel coronary disease involving the right coronary artery 2. Successful PCI/drug-eluting stents placement to the right coronary artery 3. Posterobasal wall hypokinesis with ejection fraction estimated at 55% Recommendations 1. Aspirin 81 mg daily 2. Ticagrelor 90 mg twice daily 3. Cardiovascular risk factor modification 4. Cardiac rehabilitation referral Signed by : Oziel Oakes, Electronically Approved : 07/29/2019 08:35:45 DICTATED and SIGNED BY: OZIEL OAKES MD DATE: 07/29/19 0807 INDICATION: Reason: chest pain / Spl. Instructions: / History: . COMPARISON STUDY: None. FINDINGS: Lungs: Normal lung volume. No pulmonary mass or consolidation. The tracheobronchial tree and hilar structures are normal. Pleura: No pleural effusion or pneumothorax. Heart and Mediastinum: The cardiomediastinal silhouette is normal. The great vessels of the thorax are normal. IMPRESSION: No acute cardiopulmonary process. Electronically signed by: Marion Cruz MD (07/28/2019 9:32 PM) [id number] DICTATED and SIGNED BY: MARION CRUZ MD DATE: 07/28/19 2132 VTE Prophylaxis Ordered VTE Prophylaxis Devices: Yes VTE Pharmacological Prophylaxi: Yes Assessment/Plan Assessment/Plan IMPRESSION 1. Severe single-vessel coronary disease involving the right coronary artery 2. Successful PCI/drug-eluting stents placement to the right coronary artery 3. Postero-basal wall hypokinesis with ejection fraction estimated at 55% 4. tobacco abuse disorder 5. remote hx alcohol abuse plan ADMIT ICU CARDIOLOGY CONSULTED Smoking cessation discussed home meds risk reduction strategies weight loss diet dvt prophylaxis 36 m9in cc time Justicifation of Admission Dx: Justifications for Admission: Justification of Admission Dx: Yes Angina: Symp at Rest VT: Acute STEMI LITTLE ROLDAN MD Jul 29, 2019 09:50
[2019-07-29] MEDS: NICOTINE 21MG PATCH. TD SCH (10:38)
--- NOTE | 2019-07-29 11:41 | NUR ---
SS following for discharge planning. SS reviewed pt chart and discussed with pt RN. Pt is from home with spouse and is currently on room air. Pt had heart cath on 07/28/2019. Pt transferring to room 209. Possible discharge tomorrow to home. SS will continue to follow for discharge planning.
[2019-07-29] MEDS ORDERED: ACETAMINOPHEN 500 MG TABLET PO PRN (12:15)
--- NOTE | 2019-07-29 12:31 | PDOC ---
PROGRESS NOTES Subjective Subjective c/o soreness in the chest, different than the pain he had on presentation Objective Objective Vital Signs Date Time Temp Pulse Resp B/P (MAP) Pulse Ox O2 Delivery O2 Flow Rate FiO2 07/29/19 11:50 98.1 80 123/75 (91) 100 Room Air 98.1 07/29/19 11:00 18 07/28/19 22:30 3.0 Intake and Output 07/29/19 07:00 Intake Total 1057 ml Output Total 2100 ml Balance -1043 ml Intake Oral 240 ml IV Total 817 ml Output Urine Total 2100 ml Physical Exam Abdomen: Soft Heart: Regular rate Extremities: No edema General: Alert, Oriented X3 HEENT: Atraumatic Lungs: Clear to auscultation Neuro: Normal speech Psych/Mental Status: Mood NL Assessment Assessment 1. Acute inferoposterior wall myocardial infarction. Patient had complete occlusion of RCA on cardiac catheterization and underwent PCI/FRED last night. The chest pain he is currently describing is atypical. Telemetry showed few episodes of nonsustained ventricular tachycardia that could be reperfusion related. However, magnesium level is low -we will replace intravenously. Continue dual antiplatelet therapy and current secondary prevention measures. 2. Hypertension: Well-controlled 3. Hyperlipidemia: Continue statin therapy 4. Tobacco abuse: Advised on smoking cessation Plan Plan of Care Problems Medical Problems: (1) STEMI (ST elevation myocardial infarction) Status: Acute Comment Review of Relevant I have reviewed the following items chris (where applicable) has been applied. Labs Laboratory Tests Test 07/28/19 20:50 White Blood Count 17.4 x10^3/uL (4.0-11.0) Red Blood Count 4.87 x10^6/uL (4.30-5.70) Hemoglobin 15.4 g/dL (13.0-17.5) Hematocrit 43.9 % (39.0-53.0) Mean Corpuscular Volume 90 fL (79-100) Mean Corpuscular Hemoglobin 32 pg (25-35) Mean Corpuscular Hemoglobin Concent 35 g/dL (31-37) Red Cell Distribution Width 13.4 % (11.5-14.5) Platelet Count 297 x10^3/uL (140-400) Neutrophils (%) (Auto) 78 % (31-73) Lymphocytes (%) (Auto) 13 % (24-48) Monocytes (%) (Auto) 8 % (0-9) Eosinophils (%) (Auto) 1 % (0-3) Basophils (%) (Auto) 1 % (0-3) Neutrophils # (Auto) 13.6 x10^3/uL (1.8-7.7) Lymphocytes # (Auto) 2.2 x10^3/uL (1.0-4.8) Monocytes # (Auto) 1.3 x10^3/uL (0.0-1.1) Eosinophils # (Auto) 0.2 x10^3/uL (0.0-0.7) Basophils # (Auto) 0.1 x10^3/uL (0.0-0.2) Segmented Neutrophils % 83 % (35-66) Lymphocytes % 10 % (24-48) Monocytes % 7 % (0-10) Toxic Granulation Slight Platelet Estimate Adequate (ADEQUATE) Prothrombin Time 13.1 SEC (11.7-14.0) Prothromb Time International Ratio 1.0 (0.8-1.1) Activated Partial Thromboplast Time 33 SEC (24-38) Sodium Level 138 mmol/L (136-145) Potassium Level 3.8 mmol/L (3.5-5.1) Chloride Level 99 mmol/L (98-107) Carbon Dioxide Level 24 mmol/L (21-32) Anion Gap 15 (6-14) Blood Urea Nitrogen 19 mg/dL (8-26) Creatinine 1.4 mg/dL (0.7-1.3) Estimated GFR (Cockcroft-Gault) 54.6 BUN/Creatinine Ratio 14 (6-20) Glucose Level 163 mg/dL (70-99) Calcium Level 9.3 mg/dL (8.5-10.1) Magnesium Level 1.7 mg/dL (1.8-2.4) Total Bilirubin 0.2 mg/dL (0.2-1.0) Aspartate Amino Transf (AST/SGOT) 28 U/L (15-37) Alanine Aminotransferase (ALT/SGPT) 62 U/L (16-63) Alkaline Phosphatase 142 U/L (46-116) Creatine Kinase 213 U/L (39-308) Creatine Kinase MB (Mass) 2.8 ng/mL (0.0-3.6) Creatine Kinase MB Relative Index 1.3 % (0-4) Troponin I Quantitative 0.066 ng/mL (0.000-0.055) ER-Oxe-P-Type Natriuretic Peptide 38 pg/mL (0-124) Total Protein 8.1 g/dL (6.4-8.2) Albumin 4.2 g/dL (3.4-5.0) Albumin/Globulin Ratio 1.1 (1.0-1.7) Lipase 72 U/L (73-393) Medications Current Medications Acetaminophen (Tylenol) 650 mg PRN Q6HRS PRN PO MILD PAIN / TEMP > 100.3'F Last administered on 07/29/19at 04:58; Start 07/28/19 at 22:15 Acetaminophen (Tylenol) 1,000 mg PRN BID PRN PO pain or fever; Start 07/29/19 at 12:15 Allopurinol (Zyloprim) 100 mg DAILY PO ; Start 07/29/19 at 13:00 Aspirin (Unified Aspirin) 325 mg 1X ONCE PO Last administered on 07/28/19at 21:05; Start 07/28/19 at 21:00; Stop 07/28/19 at 21:06; Status DC Aspirin (Unified Aspirin) 325 mg 1X ONCE PO Last administered on 07/28/19at 22:28; Start 07/28/19 at 22:30; Stop 07/28/19 at 22:31; Status DC Aspirin (Unified Aspirin) 325 mg STK-MED ONCE .ROUTE ; Start 07/28/19 at 22:15; Stop 07/28/19 at 22:15; Status DC Aspirin (Ecotrin) 81 mg DAILYWBKFT PO Last administered on 07/29/19at 08:13; Start 07/29/19 at 08:00 Atorvastatin Calcium (Lipitor) 10 mg QHS PO ; Start 07/29/19 at 21:00 Atorvastatin Calcium (Lipitor) 40 mg QHS PO ; Start 07/29/19 at 21:00 Bivalirudin (Angiomax) 250 mg 1X ONCE IV Last administered on 07/28/19at 22:19; Start 07/28/19 at 22:30; Stop 07/28/19 at 22:31; Status DC Bivalirudin (Angiomax) 250 mg STK-MED ONCE IV ; Start 07/28/19 at 21:40; Stop 07/28/19 at 21:40; Status DC Bivalirudin (Angiomax) 250 mg STK-MED ONCE IV ; Start 07/28/19 at 22:06; Stop 07/28/19 at 22:06; Status DC Duloxetine HCl (Cymbalta) 60 mg DAILY PO ; Start 07/29/19 at 13:00 Fentanyl Citrate (Fentanyl 2ml Vial) 50 mcg 1X ONCE IV Last administered on 07/28/19at 20:58; Start 07/28/19 at 21:00; Stop 07/28/19 at 21:06; Status DC Fentanyl Citrate (Fentanyl 2ml Vial) 50 mcg 1X ONCE IV Last administered on 07/28/19at 21:18; Start 07/28/19 at 21:30; Stop 07/28/19 at 21:31; Status DC Fentanyl Citrate (Fentanyl 2ml Vial) 100 mcg 1X ONCE IV Last administered on 07/28/19at 22:00; Start 07/28/19 at 22:00; Stop 07/28/19 at 22:06; Status DC Fentanyl Citrate (Fentanyl 2ml Vial) 100 mcg STK-MED ONCE .ROUTE ; Start 07/28/19 at 21:13; Stop 07/28/19 at 21:14; Status DC Heparin Sodium (Porcine) (Heparin Sodium) 4,000 unit 1X ONCE IV Last administered on 07/28/19at 20:59; Start 07/28/19 at 21:00; Stop 07/28/19 at 21:06; Status DC Heparin Sodium (Porcine) (Heparin Sodium) 10,000 unit STK-MED ONCE .ROUTE ; Start 07/28/19 at 21:14; Stop 07/28/19 at 21:14; Status DC Heparin Sodium/ Sodium Chloride 500 ml @ As Directed STK-MED ONCE .ROUTE ; Start 07/28/19 at 21:12; Stop 07/28/19 at 21:12; Status DC Heparin Sodium/ Sodium Chloride (HEPARIN for ARTERIAL LINE FLUSH) 1,000 unit 1X ONCE IART Last administered on 07/28/19at 22:00; Start 07/28/19 at 22:00; Stop 07/28/19 at 22:06; Status DC Heparin Sodium/ Sodium Chloride (HEPARIN for ARTERIAL LINE FLUSH) 1,000 unit 1X ONCE IART Last administered on 07/28/19at 22:00; Start 07/28/19 at 22:00; Stop 07/28/19 at 22:06; Status DC Iodixanol (Visipaque 320) 100 ml 1X ONCE IART Last administered on 07/28/19at 22:00; Start 07/28/19 at 22:00; Stop 07/28/19 at 22:06; Status DC Iodixanol (Visipaque 320) 100 ml STK-MED ONCE .ROUTE ; Start 07/28/19 at 21:12; Stop 07/28/19 at 21:12; Status DC Iodixanol (Visipaque 320) 100 ml STK-MED ONCE .ROUTE ; Start 07/28/19 at 21:57; Stop 07/28/19 at 21:58; Status DC Lidocaine HCl (Lidocaine 1% 20ml Vial) 20 ml 1X ONCE INJ Last administered on 07/28/19at 22:00; Start 07/28/19 at 22:00; Stop 07/28/19 at 22:06; Status DC Lidocaine HCl (Lidocaine 1% 20ml Vial) 20 ml STK-MED ONCE .ROUTE ; Start 07/28/19 at 21:14; Stop 07/28/19 at 21:14; Status DC Lidocaine HCl (Xylocaine-Mpf 1% 2ml Vial) 2 ml STK-MED ONCE .ROUTE ; Start 07/28/19 at 21:12; Stop 07/28/19 at 21:12; Status DC Meloxicam (Mobic) 15 mg DAILY PO ; Start 07/29/19 at 13:00 Metoprolol Tartrate (Lopressor Vial) 10 mg 1X ONCE IVP Last administered on 07/28/19at 21:04; Start 07/28/19 at 21:00; Stop 07/28/19 at 21:06; Status DC Metoprolol Tartrate (Lopressor) 12.5 mg BID PO Last administered on 07/29/19at 08:13; Start 07/29/19 at 09:00 Midazolam HCl (Versed) 2 mg 1X ONCE IV Last administered on 07/28/19at 22:00; Start 07/28/19 at 22:00; Stop 07/28/19 at 22:06; Status DC Midazolam HCl (Versed) 2 mg STK-MED ONCE .ROUTE ; Start 07/28/19 at 21:14; Stop 07/28/19 at 21:14; Status DC Nicotine (Nicoderm Cq 21mg) 1 patch DAILY TD Last administered on 07/29/19at 10:38; Start 07/29/19 at 11:00 Nitroglycerin (Nitroglycerin) 200 mcg STK-MED ONCE .ROUTE ; Start 07/28/19 at 21:14; Stop 07/28/19 at 21:15; Status DC Nitroglycerin (Nitrostat) 0.4 mg PRN Q5MIN PRN SL CHEST PAIN; Start 07/28/19 at 22:15 Non-Formulary Medication (Tadalafil (Cialis)) 1 tab DAILY PO ; Start 07/30/19 at 09:00; Status UNV Ondansetron HCl (Zofran) 4 mg 1X ONCE IVP Last administered on 07/28/19at 20:58; Start 07/28/19 at 21:00; Stop 07/28/19 at 21:06; Status DC Pantoprazole Sodium (Protonix) 40 mg DAILYAC PO ; Start 07/29/19 at 16:30 Sodium Chloride 1,000 ml @ 100 mls/hr Q10H IV Last administered on 07/29/19at 08:14; Start 07/28/19 at 22:15 Sodium Chloride 1,000 ml @ 1,000 mls/hr 1X ONCE IV Last administered on 07/28/19at 21:00; Start 07/28/19 at 21:00; Stop 07/28/19 at 22:06; Status DC Sodium Chloride (Normal Saline Flush) 3 ml QSHIFT PRN IV AFTER MEDS AND BLOOD DRAWS; Start 07/28/19 at 22:15 Ticagrelor (Brilinta) 90 mg BID PO Last administered on 07/29/19at 08:13; Start 07/29/19 at 09:00 Ticagrelor (Brilinta) 90 mg STK-MED ONCE .ROUTE ; Start 07/28/19 at 22:14; Stop 07/28/19 at 22:15; Status DC Ticagrelor (Brilinta) 180 mg 1X ONCE PO Last administered on 07/28/19at 22:28; Start 07/28/19 at 22:30; Stop 07/28/19 at 22:31; Status DC Verapamil HCl (Verapamil) 5 mg STK-MED ONCE .ROUTE ; Start 07/28/19 at 21:14; Stop 07/28/19 at 21:14; Status DC Vitals/I & O Vital Sign - Last 24 Hours 07/28/19 07/28/19 07/28/19 07/28/19 20:41 20:45 20:56 20:58 Temp 97.6 97.6 Pulse 83 84 84 Resp 18 21 21 20 B/P (MAP) 215/141 (165) 215/141 (165) 197/132 (153) Pulse Ox 99 97 99 99 O2 Delivery Room Air Room Air 07/28/19 07/28/19 07/28/19 07/28/19 21:01 21:04 21:06 21:16 Pulse 86 80 71 72 Resp 19 18 16 B/P (MAP) 193/126 (148) 193/126 165/108 (127) 161/118 (132) Pulse Ox 98 98 96 07/28/19 07/28/19 07/28/19 07/28/19 21:18 21:21 22:00 22:30 Pulse 76 56 Resp 15 16 14 14 B/P (MAP) 158/112 (127) Pulse Ox 96 97 99 99 O2 Delivery Room Air Nasal Cannula Nasal Cannula O2 Flow Rate 3.0 3.0 07/28/19 07/28/19 07/28/19 07/28/19 22:45 22:45 23:00 23:15 Temp 97.4 97.4 Pulse 70 70 71 Resp 20 14 16 B/P (MAP) 125/82 (96) 110/77 (88) 125/78 (94) Pulse Ox 98 98 96 O2 Delivery Room Air Room Air Room Air Room Air 07/28/19 07/29/19 07/29/19 07/29/19 23:30 00:00 01:00 02:00 Pulse 66 67 67 73 Resp 12 16 18 16 B/P (MAP) 123/77 (92) 117/78 (91) 99/72 (81) 101/63 (76) Pulse Ox 98 96 94 98 O2 Delivery Room Air Room Air Room Air Room Air 07/29/19 07/29/19 07/29/19 07/29/19 03:00 04:00 04:00 05:00 Temp 98.3 98.3 Pulse 70 72 74 Resp 22 15 18 B/P (MAP) 111/82 (92) 103/74 (84) 109/76 (87) Pulse Ox 96 96 98 O2 Delivery Room Air Room Air Room Air Room Air 07/29/19 07/29/19 07/29/19 07/29/19 06:00 07:20 08:00 08:10 Temp 98.7 98.7 Pulse 66 75 80 Resp 17 18 18 B/P (MAP) 114/78 (90) 95/64 (74) 126/78 (94) Pulse Ox 96 97 96 O2 Delivery Room Air Room Air Room Air Room Air 07/29/19 07/29/19 07/29/19 07/29/19 08:13 09:10 10:00 11:00 Temp 98.0 98.0 Pulse 67 63 84 70 Resp 18 18 18 B/P (MAP) 126/78 105/71 (82) 119/70 (86) 101/67 (78) Pulse Ox 96 96 96 O2 Delivery Room Air Room Air Room Air 07/29/19 11:50 Temp 98.1 98.1 Pulse 80 B/P (MAP) 123/75 (91) Pulse Ox 100 O2 Delivery Room Air Intake and Output 07/28/19 07/28/19 07/29/19 15:00 23:00 07:00 Intake Total 0 ml 1057 ml Output Total 2100 ml Balance 0 ml -1043 ml OZIEL EDMOND MD Jul 29, 2019 12:31
[2019-07-29] MEDS ORDERED: MAGNESIUM SULFATE 2GM 50 ML IV ONE (12:45)
[2019-07-29] MEDS ORDERED: MELOXICAM 7.5 MG TABLET PO SCH (13:00)
[2019-07-29] MEDS ORDERED: LORazepam 0.5 MG TABLET PO PRN (13:00)
[2019-07-29] MEDS ORDERED: ZOLPIDEM 5 MG TABLET. PO PRN (13:00)
[2019-07-29] MEDS ORDERED: DOCUSATE SODIUM 100 MG CAPSULE. PO PRN (13:00)
[2019-07-29] MEDS ORDERED: 0.9 % SODIUM CHLORIDE 10 ML DISP.SYRIN. IV PRN (13:00)
[2019-07-29] MEDS ORDERED: guaiFENesin ORAL 200 MG/10 ML LIQUID. PO PRN (13:00)
[2019-07-29] MEDS ORDERED: ONDANSETRON PF 4 MG/2 ML VIAL. IV PRN (13:00)
[2019-07-29] MEDS ORDERED: ALBUTEROL SULFATE 2.5 MG/3 ML NEBU. NEB PRN (13:00)
[2019-07-29] MEDS ORDERED: ACETAMINOPHEN 325 MG TABLET. PO PRN (13:00)
--- NOTE | 2019-07-29 13:08 | CARD ---
MR#: [id number] Date of Study: 07/29/2019 Ordering Physician: OZIEL EDMOND, Referring Physician: OZIEL EDMOND Tech: Lore Hunter RDCS APPROVED REPORT EXAM: Two-dimensional and M-mode echocardiogram with Doppler and color Doppler. Other Information Quality : Fair Technically limited study due to body habitus. INDICATION STEMI 2D DIMENSIONS RVDd3.1 (2.9-3.5cm)Left Atrium(2D)3.6 (1.6-4.0cm) IVSd1.2 (0.7-1.1cm)Aortic Root(2D)3.6 (2.0-3.7cm) LVDd3.8 (3.9-5.9cm)LVOT Diameter2.2 (1.8-2.4cm) PWd1.3 (0.7-1.1cm)LVDs3.1 (2.5-4.0cm) FS (%) 16.9 %SV21.9 ml LVEF(%)30.0 (>50%) Aortic Valve AoV Peak Haroon.113.0cm/sAoV VTI18.0cm AO Peak GR.5.1mmHgLVOT VTI 16.21cm AO Mean GR.3mmHgAVA (VTI)3.58cm2 Mitral Valve MV E Qbxqmpdy64.1cm/sMV DECEL [id number] MV A Yytfcaah54.8cm/sE/A Ratio1.2 TDI Medial E' P. V6.56cm/sE/Medial E'11.3 Pulmonary Vein S1 Ececjqeb60.8cm/sS2 Lfuqbufj24.48cm/s D2 Etgebsbs36.5cm/s LEFT VENTRICLE The left ventricle cavity is small. There is mild concentric left ventricular hypertrophy. Left ventr icle systolic function is moderately impaired. EF 40-45% There is global hypokinesis of the left vent ricle. There is moderate hypokinesis of the inferior wall. Tissue Doppler imaging reveals moderate l eft ventricular diastolic dysfunction. RIGHT VENTRICLE The right ventricle is normal size. The right ventricular systolic function is normal. ATRIA The left atrium size is normal. The right atrium size is normal. The interatrial septum is intact wit h no evidence for an atrial septal defect or patent foramen ovale as noted on 2-D or Doppler imaging. AORTIC VALVE The aortic valve is not well visualized but appears to be functioning normally by Doppler interrogati on. Doppler and Color Flow revealed no significant aortic regurgitation. There is no significant aort ic valvular stenosis. MITRAL VALVE The mitral valve is normal in structure and function. There is no evidence of mitral valve prolapse. There is no mitral valve stenosis. Doppler and Color-flow revealed trace mitral regurgitation. TRICUSPID VALVE The tricuspid valve is normal in structure and function. Doppler and Color Flow revealed no tricuspid valve regurgitation noted. There is no tricuspid valve stenosis. PULMONIC VALVE The pulmonic valve is not well visualized. Doppler and Color Flow revealed no pulmonic valvular regur gitation. There is no pulmonic valvular stenosis. GREAT VESSELS The aortic root is normal in size. The ascending aorta is not well seen. The IVC is normal in size an d collapses >50% with inspiration. PERICARDIAL EFFUSION There is no evidence of significant pericardial effusion. Critical Notification Critical Value: No <Conclusion> Left ventricle systolic function is moderately impaired. EF 40-45% There is global hypokinesis of the left ventricle. There is moderate hypokinesis of the inferior wall . Signed by : Abdulaziz Brar, Electronically Approved : 07/29/2019 13:07:23
[2019-07-29] MEDS: ALLOPURINOL 100 MG TABLET. PO SCH (13:20)
[2019-07-29] MEDS: DULoxetine HCL 30 MG CAPSULE.DR PO SCH (13:20)
[2019-07-29] MEDS: PANTOPRAZOLE 40 MG TABLET.DR. PO SCH (16:48)
[2019-07-29 17:35] LABS: BILIRUBIN,URINE NEGATIVE (NEG); CLARITY,URINE CLEAR; COLOR,URINE YELLOW; NITRITE,URINE NEGATIVE (NEG); PH,URINE 5.5 (<5.0-8.0); PROTEIN,URINE NEGATIVE (NEG-TRACE); UROBILINOGEN,URINE 0.2 mg/dL (0.2 mg/dL)
[2019-07-29 17:40] LABS: BARBITURATES NEG (NEG); BENZODIAZEPINES NEG (NEG); CANNABINOIDS NEG (NEG); COCAINE NEG (NEG); METHADONE NEG (NEG); OPIATES NEG (NEG); PHENCYCLIDINE NEG (NEG)
[2019-07-29 17:47] LABS: AMPHETAMINE/METHAMPHETAMINE NEG (NEG)
[2019-07-29 17:51] LABS: BACTERIA,URINE 0 /HPF (0-FEW); RBC,URINE 0 /HPF (0-2); SQUAMOUS EPITHELIAL CELL,UR OCC /LPF; WBC,URINE 0 /HPF (0-4)
[2019-07-29] MEDS ORDERED: ATORVASTATIN CALCIUM 20 MG TABLET PO SCH (21:00)
[2019-07-29] MEDS ORDERED: ATORVASTATIN CALCIUM 10 MG TABLET. PO SCH (21:00)
[2019-07-30 03:00] VITALS: BP 112/71
[2019-07-30] MEDS: IV 1/2 NORMAL SALINE 1,000 ML IV SCH ×2 (04:15→12:14)
[2019-07-30 04:47] LABS: BASO % 0 % (0-3); EOS # 0.2 x10^3/uL (0.0-0.7); EOS % 2 % (0-3); HEMATOCRIT 37.4 % (39.0-53.0); HEMOGLOBIN 12.9 g/dL (13.0-17.5); LYMPH # 1.9 x10^3/uL (1.0-4.8); LYMPH % 20 % (24-48); MEAN CORPUSCULAR HEMOGLOBIN 31 pg (25-35); MEAN CORPUSCULAR HGB CONC 35 g/dL (31-37); MEAN CORPUSCULAR VOLUME 90 fL (79-100); MONO # 1.1 x10^3/uL (0.0-1.1); MONO % 12 % (0-9); NEUT # 6.5 x10^3/uL (1.8-7.7); NEUT % 67 % (31-73); PLATELET COUNT 206 x10^3/uL (140-400); RED BLOOD COUNT 4.15 x10^6/uL (4.30-5.70); RED CELL DISTRIBUTION WIDTH 13.3 % (11.5-14.5); WHITE BLOOD COUNT 9.7 x10^3/uL (4.0-11.0)
[2019-07-30 05:18] LABS: ALBUMIN 3.1 g/dL (3.4-5.0); CALCIUM 8.6 mg/dL (8.5-10.1); GFR 80.4; PHOSPHORUS 3.2 mg/dL (2.6-4.7); POTASSIUM 3.7 mmol/L (3.5-5.1)
[2019-07-30 07:00] VITALS: BP 119/75
[2019-07-30] MEDS: PANTOPRAZOLE 40 MG TABLET.DR. PO SCH (08:16)
[2019-07-30] MEDS: TICAGRELOR 90 MG TABLET. PO SCH (08:16)
[2019-07-30] MEDS: ASPIRIN ENTERIC COATED 81 MG TABLET.DR. PO SCH (08:16)
[2019-07-30] MEDS: ALLOPURINOL 100 MG TABLET. PO SCH (08:17)
[2019-07-30] MEDS: DULoxetine HCL 30 MG CAPSULE.DR PO SCH (08:17)
[2019-07-30] MEDS: NICOTINE 21MG PATCH. TD SCH (08:17)
[2019-07-30] MEDS: METOPROLOL TART IMMED RELEASE 25 MG TABLET. PO SCH (08:17)
[2019-07-30] MEDS ORDERED: LISINOPRIL 5 MG TABLET. PO SCH (09:00)
[2019-07-30] MEDS ORDERED: NON FORMULARY ITEM (Tadalafil (Cialis) 1 TAB) PO SCH (09:00)
[2019-07-30 10:57] VITALS: BP 120/75
--- NOTE | 2019-07-30 11:02 | NUR ---
SS following for discharge planning. SS reviewed pt chart and discussed with pt RN. Probable discharge to home today. Pt is currently on room air. SS will continue to follow for discharge planning.
--- NOTE | 2019-07-30 11:13 | PDOC ---
PROGRESS NOTES History of Present Illness History of Present Illness VTE Prophylaxis Ordered VTE Prophylaxis Devices: Yes VTE Pharmacological Prophylaxi: Yes DISCHARGE DX Assessment/Plan IMPRESSION 1. Severe single-vessel coronary disease involving the right coronary artery 2. Successful PCI/drug-eluting stents placement to the right coronary artery 3. Postero-basal wall hypokinesis with ejection fraction estimated at 55% 4. tobacco abuse disorder 5. remote hx alcohol abuse plan ADMIT [facility] CARDIOLOGY CONSULTED OK WITH D/C 07/29 Smoking cessation discussed home meds risk reduction strategies weight loss diet dvt prophylaxis ASA/brilinta Statin. Cardiac rehab Metoprolol and start on low dose lisinopril. Justicifation of Admission Dx: Justifications for Admission: Justification of Admission Dx: Yes Angina: Symp at Rest [place]: Acute STEMI Vitals Vitals Vital Signs Date Time Temp Pulse Resp B/P (MAP) Pulse Ox O2 Delivery O2 Flow Rate FiO2 07/30/19 10:57 98.0 62 20 120/75 (90) 97 Room Air 98.0 Physical Exam General: Alert, Oriented X3, Cooperative, No acute distress Heart: Regular rate, Normal S1, Normal S2 Lungs: Clear Abdomen: Normal bowel sounds, Soft Extremities: No cyanosis, No edema Skin: No significant lesion Labs LABS Laboratory Tests Test 07/29/19 16:06 07/30/19 04:25 Urine Collection Type Unknown Urine Color Yellow Urine Clarity Clear Urine pH 5.5 (<5.0-8.0) Urine Specific [place] 1.010 (1.000-1.030) Urine Protein Negative mg/dL (NEG-TRACE) Urine Glucose (UA) Negative mg/dL (NEG) Urine Ketones (Stick) Negative mg/dL (NEG) Urine Blood Negative (NEG) Urine Nitrite Negative (NEG) Urine Bilirubin Negative (NEG) Urine Urobilinogen Dipstick 0.2 mg/dL (0.2 mg/dL) Urine Leukocyte Esterase Negative (NEG) Urine RBC 0 /HPF (0-2) Urine WBC 0 /HPF (0-4) Urine Squamous Epithelial Cells Occ /LPF Urine Bacteria 0 /HPF (0-FEW) Urine Opiates Screen Neg (NEG) Urine Methadone Screen Neg (NEG) Urine Barbiturates Neg (NEG) Urine Phencyclidine Screen Neg (NEG) Urine Amphetamine/Methamphetamine Neg (NEG) Urine Benzodiazepines Screen Neg (NEG) Urine Cocaine Screen Neg (NEG) Urine Cannabinoids Screen Neg (NEG) Urine Ethyl Alcohol Neg (NEG) White Blood Count 9.7 x10^3/uL (4.0-11.0) Red Blood Count 4.15 x10^6/uL (4.30-5.70) Hemoglobin 12.9 g/dL (13.0-17.5) Hematocrit 37.4 % (39.0-53.0) Mean Corpuscular Volume 90 fL (79-100) Mean Corpuscular Hemoglobin 31 pg (25-35) Mean Corpuscular Hemoglobin Concent 35 g/dL (31-37) Red Cell Distribution Width 13.3 % (11.5-14.5) Platelet Count 206 x10^3/uL (140-400) Neutrophils (%) (Auto) 67 % (31-73) Lymphocytes (%) (Auto) 20 % (24-48) Monocytes (%) (Auto) 12 % (0-9) Eosinophils (%) (Auto) 2 % (0-3) Basophils (%) (Auto) 0 % (0-3) Neutrophils # (Auto) 6.5 x10^3/uL (1.8-7.7) Lymphocytes # (Auto) 1.9 x10^3/uL (1.0-4.8) Monocytes # (Auto) 1.1 x10^3/uL (0.0-1.1) Eosinophils # (Auto) 0.2 x10^3/uL (0.0-0.7) Basophils # (Auto) 0.0 x10^3/uL (0.0-0.2) Sodium Level 138 mmol/L (136-145) Potassium Level 3.7 mmol/L (3.5-5.1) Chloride Level 103 mmol/L (98-107) Carbon Dioxide Level 24 mmol/L (21-32) Anion Gap 11 (6-14) Blood Urea Nitrogen 14 mg/dL (8-26) Creatinine 1.0 mg/dL (0.7-1.3) Estimated GFR (Cockcroft-Gault) 80.4 Glucose Level 106 mg/dL (70-99) Calcium Level 8.6 mg/dL (8.5-10.1) Phosphorus Level 3.2 mg/dL (2.6-4.7) Albumin 3.1 g/dL (3.4-5.0) Triglycerides Level 138 mg/dL (0-150) Cholesterol Level 170 mg/dL (0-200) LDL Cholesterol, Calculated 99 mg/dL (0-100) VLDL Cholesterol, Calculated 28 mg/dL (0-40) Non-HDL Cholesterol Calculated 127 mg/dL (0-129) HDL Cholesterol 43 mg/dL (40-60) Cholesterol/HDL Ratio 4.0 Assessment and Plan Assessmemt and Plan Problems Medical Problems: (1) STEMI (ST elevation myocardial infarction) Status: Acute Comment Review of Relevant I have reviewed the following items chris (where applicable) has been applied. Labs Laboratory Tests Test 07/28/19 20:50 07/29/19 16:06 07/30/19 04:25 White Blood Count 17.4 x10^3/uL (4.0-11.0) 9.7 x10^3/uL (4.0-11.0) Red Blood Count 4.87 x10^6/uL (4.30-5.70) 4.15 x10^6/uL (4.30-5.70) Hemoglobin 15.4 g/dL (13.0-17.5) 12.9 g/dL (13.0-17.5) Hematocrit 43.9 % (39.0-53.0) 37.4 % (39.0-53.0) Mean Corpuscular Volume 90 fL (79-100) 90 fL (79-100) Mean Corpuscular Hemoglobin 32 pg (25-35) 31 pg (25-35) Mean Corpuscular Hemoglobin Concent 35 g/dL (31-37) 35 g/dL (31-37) Red Cell Distribution Width 13.4 % (11.5-14.5) 13.3 % (11.5-14.5) Platelet Count 297 x10^3/uL (140-400) 206 x10^3/uL (140-400) Neutrophils (%) (Auto) 78 % (31-73) 67 % (31-73) Lymphocytes (%) (Auto) 13 % (24-48) 20 % (24-48) Monocytes (%) (Auto) 8 % (0-9) 12 % (0-9) Eosinophils (%) (Auto) 1 % (0-3) 2 % (0-3) Basophils (%) (Auto) 1 % (0-3) 0 % (0-3) Neutrophils # (Auto) 13.6 x10^3/uL (1.8-7.7) 6.5 x10^3/uL (1.8-7.7) Lymphocytes # (Auto) 2.2 x10^3/uL (1.0-4.8) 1.9 x10^3/uL (1.0-4.8) Monocytes # (Auto) 1.3 x10^3/uL (0.0-1.1) 1.1 x10^3/uL (0.0-1.1) Eosinophils # (Auto) 0.2 x10^3/uL (0.0-0.7) 0.2 x10^3/uL (0.0-0.7) Basophils # (Auto) 0.1 x10^3/uL (0.0-0.2) 0.0 x10^3/uL (0.0-0.2) Segmented Neutrophils % 83 % (35-66) Lymphocytes % 10 % (24-48) Monocytes % 7 % (0-10) Toxic Granulation Slight Platelet Estimate Adequate (ADEQUATE) Prothrombin Time 13.1 SEC (11.7-14.0) Prothromb Time International Ratio 1.0 (0.8-1.1) Activated Partial Thromboplast Time 33 SEC (24-38) Sodium Level 138 mmol/L (136-145) 138 mmol/L (136-145) Potassium Level 3.8 mmol/L (3.5-5.1) 3.7 mmol/L (3.5-5.1) Chloride Level 99 mmol/L (98-107) 103 mmol/L (98-107) Carbon Dioxide Level 24 mmol/L (21-32) 24 mmol/L (21-32) Anion Gap 15 (6-14) 11 (6-14) Blood Urea Nitrogen 19 mg/dL (8-26) 14 mg/dL (8-26) Creatinine 1.4 mg/dL (0.7-1.3) 1.0 mg/dL (0.7-1.3) Estimated GFR (Cockcroft-Gault) 54.6 80.4 BUN/Creatinine Ratio 14 (6-20) Glucose Level 163 mg/dL (70-99) 106 mg/dL (70-99) Calcium Level 9.3 mg/dL (8.5-10.1) 8.6 mg/dL (8.5-10.1) Magnesium Level 1.7 mg/dL (1.8-2.4) Total Bilirubin 0.2 mg/dL (0.2-1.0) Aspartate Amino Transf (AST/SGOT) 28 U/L (15-37) Alanine Aminotransferase (ALT/SGPT) 62 U/L (16-63) Alkaline Phosphatase 142 U/L (46-116) Creatine Kinase 213 U/L (39-308) Creatine Kinase MB (Mass) 2.8 ng/mL (0.0-3.6) Creatine Kinase MB Relative Index 1.3 % (0-4) Troponin I Quantitative 0.066 ng/mL (0.000-0.055) DO-Sff-R-Type Natriuretic Peptide 38 pg/mL (0-124) Total Protein 8.1 g/dL (6.4-8.2) Albumin 4.2 g/dL (3.4-5.0) 3.1 g/dL (3.4-5.0) Albumin/Globulin Ratio 1.1 (1.0-1.7) Lipase 72 U/L (73-393) Urine Collection Type Unknown Urine Color Yellow Urine Clarity Clear Urine pH 5.5 (<5.0-8.0) Urine Specific [place] 1.010 (1.000-1.030) Urine Protein Negative mg/dL (NEG-TRACE) Urine Glucose (UA) Negative mg/dL (NEG) Urine Ketones (Stick) Negative mg/dL (NEG) Urine Blood Negative (NEG) Urine Nitrite Negative (NEG) Urine Bilirubin Negative (NEG) Urine Urobilinogen Dipstick 0.2 mg/dL (0.2 mg/dL) Urine Leukocyte Esterase Negative (NEG) Urine RBC 0 /HPF (0-2) Urine WBC 0 /HPF (0-4) Urine Squamous Epithelial Cells Occ /LPF Urine Bacteria 0 /HPF (0-FEW) Urine Opiates Screen Neg (NEG) Urine Methadone Screen Neg (NEG) Urine Barbiturates Neg (NEG) Urine Phencyclidine Screen Neg (NEG) Urine Amphetamine/Methamphetamine Neg (NEG) Urine Benzodiazepines Screen Neg (NEG) Urine Cocaine Screen Neg (NEG) Urine Cannabinoids Screen Neg (NEG) Urine Ethyl Alcohol Neg (NEG) Phosphorus Level 3.2 mg/dL (2.6-4.7) Triglycerides Level 138 mg/dL (0-150) Cholesterol Level 170 mg/dL (0-200) LDL Cholesterol, Calculated 99 mg/dL (0-100) VLDL Cholesterol, Calculated 28 mg/dL (0-40) Non-HDL Cholesterol Calculated 127 mg/dL (0-129) HDL Cholesterol 43 mg/dL (40-60) Cholesterol/HDL Ratio 4.0 Laboratory Tests Test 07/29/19 16:06 07/30/19 04:25 Urine Collection Type Unknown Urine Color Yellow Urine Clarity Clear Urine pH 5.5 (<5.0-8.0) Urine Specific [place] 1.010 (1.000-1.030) Urine Protein Negative mg/dL (NEG-TRACE) Urine Glucose (UA) Negative mg/dL (NEG) Urine Ketones (Stick) Negative mg/dL (NEG) Urine Blood Negative (NEG) Urine Nitrite Negative (NEG) Urine Bilirubin Negative (NEG) Urine Urobilinogen Dipstick 0.2 mg/dL (0.2 mg/dL) Urine Leukocyte Esterase Negative (NEG) Urine RBC 0 /HPF (0-2) Urine WBC 0 /HPF (0-4) Urine Squamous Epithelial Cells Occ /LPF Urine Bacteria 0 /HPF (0-FEW) Urine Opiates Screen Neg (NEG) Urine Methadone Screen Neg (NEG) Urine Barbiturates Neg (NEG) Urine Phencyclidine Screen Neg (NEG) Urine Amphetamine/Methamphetamine Neg (NEG) Urine Benzodiazepines Screen Neg (NEG) Urine Cocaine Screen Neg (NEG) Urine Cannabinoids Screen Neg (NEG) Urine Ethyl Alcohol Neg (NEG) White Blood Count 9.7 x10^3/uL (4.0-11.0) Red Blood Count 4.15 x10^6/uL (4.30-5.70) Hemoglobin 12.9 g/dL (13.0-17.5) Hematocrit 37.4 % (39.0-53.0) Mean Corpuscular Volume 90 fL (79-100) Mean Corpuscular Hemoglobin 31 pg (25-35) Mean Corpuscular Hemoglobin Concent 35 g/dL (31-37) Red Cell Distribution Width 13.3 % (11.5-14.5) Platelet Count 206 x10^3/uL (140-400) Neutrophils (%) (Auto) 67 % (31-73) Lymphocytes (%) (Auto) 20 % (24-48) Monocytes (%) (Auto) 12 % (0-9) Eosinophils (%) (Auto) 2 % (0-3) Basophils (%) (Auto) 0 % (0-3) Neutrophils # (Auto) 6.5 x10^3/uL (1.8-7.7) Lymphocytes # (Auto) 1.9 x10^3/uL (1.0-4.8) Monocytes # (Auto) 1.1 x10^3/uL (0.0-1.1) Eosinophils # (Auto) 0.2 x10^3/uL (0.0-0.7) Basophils # (Auto) 0.0 x10^3/uL (0.0-0.2) Sodium Level 138 mmol/L (136-145) Potassium Level 3.7 mmol/L (3.5-5.1) Chloride Level 103 mmol/L (98-107) Carbon Dioxide Level 24 mmol/L (21-32) Anion Gap 11 (6-14) Blood Urea Nitrogen 14 mg/dL (8-26) Creatinine 1.0 mg/dL (0.7-1.3) Estimated GFR (Cockcroft-Gault) 80.4 Glucose Level 106 mg/dL (70-99) Calcium Level 8.6 mg/dL (8.5-10.1) Phosphorus Level 3.2 mg/dL (2.6-4.7) Albumin 3.1 g/dL (3.4-5.0) Triglycerides Level 138 mg/dL (0-150) Cholesterol Level 170 mg/dL (0-200) LDL Cholesterol, Calculated 99 mg/dL (0-100) VLDL Cholesterol, Calculated 28 mg/dL (0-40) Non-HDL Cholesterol Calculated 127 mg/dL (0-129) HDL Cholesterol 43 mg/dL (40-60) Cholesterol/HDL Ratio 4.0 Medications Current Medications Aspirin ([place] Aspirin) 325 mg 1X ONCE PO Last administered on 07/28/19at 21:05; Start 07/28/19 at 21:00; Stop 07/28/19 at 21:06; Status DC Sodium Chloride 1,000 ml @ 1,000 mls/hr 1X ONCE IV Last administered on 07/28/19at 21:00; Start 07/28/19 at 21:00; Stop 07/28/19 at 22:06; Status DC Fentanyl Citrate (Fentanyl 2ml Vial) 50 mcg 1X ONCE IV Last administered on 07/28/19at 20:58; Start 07/28/19 at 21:00; Stop 07/28/19 at 21:06; Status DC Heparin Sodium (Porcine) (Heparin Sodium) 4,000 unit 1X ONCE IV Last administered on 07/28/19at 20:59; Start 07/28/19 at 21:00; Stop 07/28/19 at 21:06; Status DC Ondansetron HCl (Zofran) 4 mg 1X ONCE IVP Last administered on 07/28/19at 20:58; Start 07/28/19 at 21:00; Stop 07/28/19 at 21:06; Status DC Metoprolol Tartrate (Lopressor Vial) 10 mg 1X ONCE IVP Last administered on 07/28/19at 21:04; Start 07/28/19 at 21:00; Stop 07/28/19 at 21:06; Status DC Fentanyl Citrate (Fentanyl 2ml Vial) 50 mcg 1X ONCE IV Last administered on 07/28/19at 21:18; Start 07/28/19 at 21:30; Stop 07/28/19 at 21:31; Status DC Iodixanol (Visipaque 320) 100 ml STK-MED ONCE .ROUTE ; Start 07/28/19 at 21:12; Stop 07/28/19 at 21:12; Status DC Lidocaine HCl (Xylocaine-Mpf 1% 2ml Vial) 2 ml STK-MED ONCE .ROUTE ; Start 07/28/19 at 21:12; Stop 07/28/19 at 21:12; Status DC Heparin Sodium/ Sodium Chloride 500 ml @ As Directed STK-MED ONCE .ROUTE ; Start 07/28/19 at 21:12; Stop 07/28/19 at 21:12; Status DC Midazolam HCl (Versed) 2 mg STK-MED ONCE .ROUTE ; Start 07/28/19 at 21:14; Stop 07/28/19 at 21:14; Status DC Heparin Sodium (Porcine) (Heparin Sodium) 10,000 unit STK-MED ONCE .ROUTE ; Start 07/28/19 at 21:14; Stop 07/28/19 at 21:14; Status DC Verapamil HCl (Verapamil) 5 mg STK-MED ONCE .ROUTE ; Start 07/28/19 at 21:14; Stop 07/28/19 at 21:14; Status DC Lidocaine HCl (Lidocaine 1% 20ml Vial) 20 ml STK-MED ONCE .ROUTE ; Start 07/28/19 at 21:14; Stop 07/28/19 at 21:14; Status DC Fentanyl Citrate (Fentanyl 2ml Vial) 100 mcg STK-MED ONCE .ROUTE ; Start 07/28/19 at 21:13; Stop 07/28/19 at 21:14; Status DC Nitroglycerin (Nitroglycerin) 200 mcg STK-MED ONCE .ROUTE ; Start 07/28/19 at 21:14; Stop 07/28/19 at 21:15; Status DC Bivalirudin (Angiomax) 250 mg STK-MED ONCE IV ; Start 07/28/19 at 21:40; Stop 07/28/19 at 21:40; Status DC Heparin Sodium/ Sodium Chloride (HEPARIN for ARTERIAL LINE FLUSH) 1,000 unit 1X ONCE IART Last administered on 07/28/19at 22:00; Start 07/28/19 at 22:00; Stop 07/28/19 at 22:06; Status DC Heparin Sodium/ Sodium Chloride (HEPARIN for ARTERIAL LINE FLUSH) 1,000 unit 1X ONCE IART Last administered on 07/28/19at 22:00; Start 07/28/19 at 22:00; Stop 07/28/19 at 22:06; Status DC Midazolam HCl (Versed) 2 mg 1X ONCE IV Last administered on 07/28/19at 22:00; Start 07/28/19 at 22:00; Stop 07/28/19 at 22:06; Status DC Fentanyl Citrate (Fentanyl 2ml Vial) 100 mcg 1X ONCE IV Last administered on 07/28/19at 22:00; Start 07/28/19 at 22:00; Stop 07/28/19 at 22:06; Status DC Iodixanol (Visipaque 320) 100 ml 1X ONCE IART Last administered on 07/28/19at 22:00; Start 07/28/19 at 22:00; Stop 07/28/19 at 22:06; Status DC Lidocaine HCl (Lidocaine 1% 20ml Vial) 20 ml 1X ONCE INJ Last administered on 07/28/19at 22:00; Start 07/28/19 at 22:00; Stop 07/28/19 at 22:06; Status DC Iodixanol (Visipaque 320) 100 ml STK-MED ONCE .ROUTE ; Start 07/28/19 at 21:57; Stop 07/28/19 at 21:58; Status DC Ticagrelor (Brilinta) 180 mg 1X ONCE PO Last administered on 07/28/19at 22:28; Start 07/28/19 at 22:30; Stop 07/28/19 at 22:31; Status DC Aspirin (Katelyn Aspirin) 325 mg 1X ONCE PO Last administered on 07/28/19at 22:28; Start 07/28/19 at 22:30; Stop 07/28/19 at 22:31; Status DC Bivalirudin (Angiomax) 250 mg STK-MED ONCE IV ; Start 07/28/19 at 22:06; Stop 07/28/19 at 22:06; Status DC Bivalirudin (Angiomax) 250 mg 1X ONCE IV Last administered on 07/28/19at 22:19; Start 07/28/19 at 22:30; Stop 07/28/19 at 22:31; Status DC Ticagrelor (Brilinta) 90 mg STK-MED ONCE .ROUTE ; Start 07/28/19 at 22:14; Stop 07/28/19 at 22:15; Status DC Aspirin (Katelyn Aspirin) 325 mg STK-MED ONCE .ROUTE ; Start 07/28/19 at 22:15; Stop 07/28/19 at 22:15; Status DC Sodium Chloride (Normal Saline Flush) 3 ml QSHIFT PRN IV AFTER MEDS AND BLOOD DRAWS; Start 07/28/19 at 22:15 Sodium Chloride 1,000 ml @ 100 mls/hr Q10H IV Last administered on 07/29/19at 22:54; Start 07/28/19 at 22:15 Aspirin (Ecotrin) 81 mg DAILYWBKFT PO Last administered on 07/30/19at 08:16; Start 6/22/20 at 08:00 Ticagrelor (Brilinta) 90 mg BID PO Last administered on 07/30/19at 08:16; Start 07/29/19 at 09:00 Metoprolol Tartrate (Lopressor) 12.5 mg BID PO Last administered on 07/30/19at 08:17; Start 07/29/19 at 09:00 Atorvastatin Calcium (Lipitor) 40 mg QHS PO Last administered on 07/29/19at 21:18; Start 07/29/19 at 21:00 Acetaminophen (Tylenol) 650 mg PRN Q6HRS PRN PO MILD PAIN / TEMP > 100.3'F Last administered on 07/29/19at 04:58; Start 07/28/19 at 22:15; Stop 07/29/19 at 13:03; Status DC Nitroglycerin (Nitrostat) 0.4 mg PRN Q5MIN PRN SL CHEST PAIN; Start 07/28/19 at 22:15 Nicotine (Nicoderm Cq 21mg) 1 patch DAILY TD Last administered on 07/30/19at 08:17; Start 07/29/19 at 11:00 Acetaminophen (Tylenol) 1,000 mg PRN BID PRN PO pain or fever Last administered on 07/29/19at 13:20; Start 07/29/19 at 12:15; Stop 07/30/19 at 09:51; Status DC Allopurinol (Zyloprim) 100 mg DAILY PO Last administered on 07/30/19at 08:17; Start 07/29/19 at 13:00 Atorvastatin Calcium (Lipitor) 10 mg QHS PO Last administered on 07/29/19at 21:18; Start 07/29/19 at 21:00; Stop 07/30/19 at 09:52; Status DC Duloxetine HCl (Cymbalta) 60 mg DAILY PO Last administered on 07/30/19at 08:17; Start 07/29/19 at 13:00 Meloxicam (Mobic) 15 mg DAILY PO ; Start 07/29/19 at 13:00; Stop 07/29/19 at 12:57; Status DC Pantoprazole Sodium (Protonix) 40 mg DAILYAC PO Last administered on 07/30/19at 08:16; Start 07/29/19 at 16:30 Non-Formulary Medication (Tadalafil (Cialis)) 1 tab DAILY PO ; Start 07/30/19 at 09:00; Status UNV Magnesium Sulfate 50 ml @ 25 mls/hr 1X ONCE IV Last administered on 07/29/19at 13:21; Start 07/29/19 at 12:45; Stop 07/29/19 at 14:44; Status DC Sodium Chloride (Normal Saline Flush) 3 ml QSHIFT PRN IV AFTER MEDS AND BLOOD DRAWS; Start 07/29/19 at 13:00 Ondansetron HCl (Zofran) 4 mg PRN Q4HRS PRN IV NAUSEA/VOMITING; Start 07/29/19 at 13:00 Zolpidem Tartrate (Ambien) 5 mg PRN QHS PRN PO INSOMNIA; Start 07/29/19 at 13:00 Acetaminophen (Tylenol) 650 mg PRN Q4HRS PRN PO TEMP OVER 100.4F OR MILD PAIN Last administered on 07/29/19at 19:13; Start 07/29/19 at 13:00 Docusate Sodium (Colace) 100 mg PRN BID PRN PO HARD STOOLS; Start 07/29/19 at 13:00 Albuterol Sulfate (Ventolin Neb Soln) 2.5 mg PRN Q4HRS PRN NEB SHORTNESS OF BREATH; Start 07/29/19 at 13:00 Guaifenesin (Robitussin) 200 mg PRN Q4HRS PRN PO COUGH; Start 07/29/19 at 13:00 Lorazepam (Ativan) 0.5 mg PRN Q4HRS PRN PO ANXIETY / AGITATION Last administered on 07/29/19at 13:20; Start 07/29/19 at 13:00 Lisinopril (Prinivil) 2.5 mg DAILY PO Last administered on 07/30/19at 08:27; Start 07/30/19 at 09:00 Active Scripts Active Reported Acetaminophen 500 Mg Tablet 2 Tab PO PRN BID PRN 30 Days Prilosec Otc (Omeprazole Magnesium) 20 Mg Tablet.dr 20 Mg PO DAILY Cialis (Tadalafil) 5 Mg Tablet 1 Tab PO DAILY Duloxetine Hcl 60 Mg Capsule.dr 60 Mg PO DAILY Meloxicam 15 Mg Tablet 15 Mg PO DAILY Lipitor (Atorvastatin Calcium) 10 Mg Tablet 1 Tab PO DAILY Lisinopril 10 Mg Tablet 1 Tab PO DAILY Hydrochlorothiazide Tablet (Hydrochlorothiazide) 25 Mg Tablet 25 Mg PO DAILY Allopurinol 100 Mg Tablet 1 Tab PO DAILY Vitals/I & O Vital Sign - Last 24 Hours 07/29/19 07/29/19 07/29/19 07/29/19 11:50 12:50 15:00 19:30 Temp 98.1 97.8 98.1 97.8 Pulse 80 89 Resp 18 B/P (MAP) 123/75 (91) 116/72 (87) Pulse Ox 100 95 O2 Delivery Room Air Room Air Room Air Room Air 07/29/19 07/29/19 07/29/19 07/30/19 19:45 21:19 22:45 03:00 Temp 98.2 98.1 97.9 98.2 98.1 97.9 Pulse 78 78 69 63 Resp 20 20 20 B/P (MAP) 122/64 (83) 122/64 102/62 (75) 112/71 (85) Pulse Ox 97 94 94 O2 Delivery Room Air Room Air Room Air 07/30/19 07/30/19 07/30/19 07/30/19 07:00 08:00 08:17 08:27 Temp 98.1 98.1 Pulse 68 68 68 Resp 20 B/P (MAP) 119/75 (90) 119/75 119/75 Pulse Ox 98 O2 Delivery Room Air Room Air 07/30/19 10:57 Temp 98.0 98.0 Pulse 62 Resp 20 B/P (MAP) 120/75 (90) Pulse Ox 97 O2 Delivery Room Air Intake and Output 07/29/19 07/29/19 07/30/19 15:00 23:00 07:00 Intake Total 500 ml 380 ml 100 ml Output Total 300 ml Balance 200 ml 380 ml 100 ml LITTLE ROLDAN MD Jul 30, 2019 11:13
--- NOTE | 2019-07-30 11:20 | PDOC2 ---
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 HAS HX OF HTN AND SMOKING WHICH IS CURRENT. CR OF 1.4 YESTERDAY. TODAY IT IS 1.0. STATES HE HAD KIDNEY PROBLEMS YEARS AGO WHEN HE WAS ADMITTED WITH ALCOHOL POISONING. HAS HAD A HX OF ETOH ABUSE BUT HAS NOT HAD ANY ETOH IN 6 YEARS. HE AVOIDS NSAID OTC. NO NEPHROTOXINS AND NO HEMODYNAMIC INSTABILITY NOTED. NO OTHER HX REPORTED. Past Medical History Cardiovascular: HTN, Hyperlipidemia Psych: Addictions Musculoskeletal: Other (GOUT) Infectious disease: No pertinent hx ENT: No pertinent hx Renal/: No pertinent hx Past Surgical History Past Surgical History NONE Family History Family History: Alcohol Abuse, High Cholestrol, Hypertension Social History <1 pack per day ALCOHOL: other (sober now) Drugs: None Lives: with Family Current Problem List Problem List Problems Medical Problems: (1) STEMI (ST elevation myocardial infarction) Status: Acute Current Medications Current Medications Current Medications Aspirin (Katelyn Aspirin) 325 mg 1X ONCE PO Last administered on 07/28/19at 21:05; Start 07/28/19 at 21:00; Stop 07/28/19 at 21:06; Status DC Sodium Chloride 1,000 ml @ 1,000 mls/hr 1X ONCE IV Last administered on 07/28/19at 21:00; Start 07/28/19 at 21:00; Stop 07/28/19 at 22:06; Status DC Fentanyl Citrate (Fentanyl 2ml Vial) 50 mcg 1X ONCE IV Last administered on 07/28/19at 20:58; Start 07/28/19 at 21:00; Stop 07/28/19 at 21:06; Status DC Heparin Sodium (Porcine) (Heparin Sodium) 4,000 unit 1X ONCE IV Last administered on 07/28/19at 20:59; Start 07/28/19 at 21:00; Stop 07/28/19 at 21:06; Status DC Ondansetron HCl (Zofran) 4 mg 1X ONCE IVP Last administered on 6/21/20at 20:58; Start 07/28/19 at 21:00; Stop 07/28/19 at 21:06; Status DC Metoprolol Tartrate (Lopressor Vial) 10 mg 1X ONCE IVP Last administered on 07/28/19at 21:04; Start 07/28/19 at 21:00; Stop 07/28/19 at 21:06; Status DC Fentanyl Citrate (Fentanyl 2ml Vial) 50 mcg 1X ONCE IV Last administered on 07/28/19at 21:18; Start 07/28/19 at 21:30; Stop 07/28/19 at 21:31; Status DC Iodixanol (Visipaque 320) 100 ml STK-MED ONCE .ROUTE ; Start 07/28/19 at 21:12; Stop 07/28/19 at 21:12; Status DC Lidocaine HCl (Xylocaine-Mpf 1% 2ml Vial) 2 ml STK-MED ONCE .ROUTE ; Start 07/28/19 at 21:12; Stop 07/28/19 at 21:12; Status DC Heparin Sodium/ Sodium Chloride 500 ml @ As Directed STK-MED ONCE .ROUTE ; Start 07/28/19 at 21:12; Stop 07/28/19 at 21:12; Status DC Midazolam HCl (Versed) 2 mg STK-MED ONCE .ROUTE ; Start 07/28/19 at 21:14; Stop 07/28/19 at 21:14; Status DC Heparin Sodium (Porcine) (Heparin Sodium) 10,000 unit STK-MED ONCE .ROUTE ; Start 07/28/19 at 21:14; Stop 07/28/19 at 21:14; Status DC Verapamil HCl (Verapamil) 5 mg STK-MED ONCE .ROUTE ; Start 07/28/19 at 21:14; Stop 07/28/19 at 21:14; Status DC Lidocaine HCl (Lidocaine 1% 20ml Vial) 20 ml STK-MED ONCE .ROUTE ; Start 07/28/19 at 21:14; Stop 07/28/19 at 21:14; Status DC Fentanyl Citrate (Fentanyl 2ml Vial) 100 mcg STK-MED ONCE .ROUTE ; Start 07/28/19 at 21:13; Stop 07/28/19 at 21:14; Status DC Nitroglycerin (Nitroglycerin) 200 mcg STK-MED ONCE .ROUTE ; Start 07/28/19 at 21:14; Stop 07/28/19 at 21:15; Status DC Bivalirudin (Angiomax) 250 mg STK-MED ONCE IV ; Start 07/28/19 at 21:40; Stop 07/28/19 at 21:40; Status DC Heparin Sodium/ Sodium Chloride (HEPARIN for ARTERIAL LINE FLUSH) 1,000 unit 1X ONCE IART Last administered on 07/28/19at 22:00; Start 07/28/19 at 22:00; Stop 07/28/19 at 22:06; Status DC Heparin Sodium/ Sodium Chloride (HEPARIN for ARTERIAL LINE FLUSH) 1,000 unit 1X ONCE IART Last administered on 07/28/19at 22:00; Start 07/28/19 at 22:00; Stop 07/28/19 at 22:06; Status DC Midazolam HCl (Versed) 2 mg 1X ONCE IV Last administered on 07/28/19at 22:00; Start 07/28/19 at 22:00; Stop 07/28/19 at 22:06; Status DC Fentanyl Citrate (Fentanyl 2ml Vial) 100 mcg 1X ONCE IV Last administered on 07/28/19at 22:00; Start 07/28/19 at 22:00; Stop 07/28/19 at 22:06; Status DC Iodixanol (Visipaque 320) 100 ml 1X ONCE IART Last administered on 07/28/19at 22:00; Start 07/28/19 at 22:00; Stop 07/28/19 at 22:06; Status DC Lidocaine HCl (Lidocaine 1% 20ml Vial) 20 ml 1X ONCE INJ Last administered on 07/28/19at 22:00; Start 07/28/19 at 22:00; Stop 07/28/19 at 22:06; Status DC Iodixanol (Visipaque 320) 100 ml STK-MED ONCE .ROUTE ; Start 07/28/19 at 21:57; Stop 07/28/19 at 21:58; Status DC Ticagrelor (Brilinta) 180 mg 1X ONCE PO Last administered on 07/28/19at 22:28; Start 07/28/19 at 22:30; Stop 07/28/19 at 22:31; Status DC Aspirin (Katelyn Aspirin) 325 mg 1X ONCE PO Last administered on 07/28/19at 22:28; Start 07/28/19 at 22:30; Stop 07/28/19 at 22:31; Status DC Bivalirudin (Angiomax) 250 mg STK-MED ONCE IV ; Start 07/28/19 at 22:06; Stop 07/28/19 at 22:06; Status DC Bivalirudin (Angiomax) 250 mg 1X ONCE IV Last administered on 07/28/19at 22:19; Start 07/28/19 at 22:30; Stop 07/28/19 at 22:31; Status DC Ticagrelor (Brilinta) 90 mg STK-MED ONCE .ROUTE ; Start 07/28/19 at 22:14; Stop 07/28/19 at 22:15; Status DC Aspirin (Katelyn Aspirin) 325 mg STK-MED ONCE .ROUTE ; Start 07/28/19 at 22:15; Stop 07/28/19 at 22:15; Status DC Sodium Chloride (Normal Saline Flush) 3 ml QSHIFT PRN IV AFTER MEDS AND BLOOD DRAWS; Start 07/28/19 at 22:15 Sodium Chloride 1,000 ml @ 100 mls/hr Q10H IV Last administered on 07/29/19at 22:54; Start 07/28/19 at 22:15 Aspirin (Ecotrin) 81 mg DAILYWBKFT PO Last administered on 07/30/19at 08:16; Start 07/29/19 at 08:00 Ticagrelor (Brilinta) 90 mg BID PO Last administered on 07/30/19at 08:16; Start 07/29/19 at 09:00 Metoprolol Tartrate (Lopressor) 12.5 mg BID PO Last administered on 07/30/19at 08:17; Start 07/29/19 at 09:00 Atorvastatin Calcium (Lipitor) 40 mg QHS PO Last administered on 07/29/19at 21:18; Start 07/29/19 at 21:00 Acetaminophen (Tylenol) 650 mg PRN Q6HRS PRN PO MILD PAIN / TEMP > 100.3'F Last administered on 07/29/19at 04:58; Start 07/28/19 at 22:15; Stop 07/29/19 at 13:03; Status DC Nitroglycerin (Nitrostat) 0.4 mg PRN Q5MIN PRN SL CHEST PAIN; Start 07/28/19 at 22:15 Nicotine (Nicoderm Cq 21mg) 1 patch DAILY TD Last administered on 07/30/19at 08:17; Start 07/29/19 at 11:00 Acetaminophen (Tylenol) 1,000 mg PRN BID PRN PO pain or fever Last administered on 07/29/19at 13:20; Start 07/29/19 at 12:15; Stop 07/30/19 at 09:51; Status DC Allopurinol (Zyloprim) 100 mg DAILY PO Last administered on 07/30/19at 08:17; Start 07/29/19 at 13:00 Atorvastatin Calcium (Lipitor) 10 mg QHS PO Last administered on 07/29/19at 21:18; Start 07/29/19 at 21:00; Stop 07/30/19 at 09:52; Status DC Duloxetine HCl (Cymbalta) 60 mg DAILY PO Last administered on 07/30/19at 08:17; Start 07/29/19 at 13:00 Meloxicam (Mobic) 15 mg DAILY PO ; Start 07/29/19 at 13:00; Stop 07/29/19 at 12:57; Status DC Pantoprazole Sodium (Protonix) 40 mg DAILYAC PO Last administered on 07/30/19at 08:16; Start 07/29/19 at 16:30 Non-Formulary Medication (Tadalafil (Cialis)) 1 tab DAILY PO ; Start 07/30/19 at 09:00; Status UNV Magnesium Sulfate 50 ml @ 25 mls/hr 1X ONCE IV Last administered on 07/29/19at 13:21; Start 07/29/19 at 12:45; Stop 07/29/19 at 14:44; Status DC Sodium Chloride (Normal Saline Flush) 3 ml QSHIFT PRN IV AFTER MEDS AND BLOOD DRAWS; Start 07/29/19 at 13:00 Ondansetron HCl (Zofran) 4 mg PRN Q4HRS PRN IV NAUSEA/VOMITING; Start 07/29/19 at 13:00 Zolpidem Tartrate (Ambien) 5 mg PRN QHS PRN PO INSOMNIA; Start 07/29/19 at 13:00 Acetaminophen (Tylenol) 650 mg PRN Q4HRS PRN PO TEMP OVER 100.4F OR MILD PAIN Last administered on 07/29/19at 19:13; Start 07/29/19 at 13:00 Docusate Sodium (Colace) 100 mg PRN BID PRN PO HARD STOOLS; Start 07/29/19 at 13:00 Albuterol Sulfate (Ventolin Neb Soln) 2.5 mg PRN Q4HRS PRN NEB SHORTNESS OF BR EATH; Start 07/29/19 at 13:00 Guaifenesin (Robitussin) 200 mg PRN Q4HRS PRN PO COUGH; Start 07/29/19 at 13:00 Lorazepam (Ativan) 0.5 mg PRN Q4HRS PRN PO ANXIETY / AGITATION Last administered on 07/29/19at 13:20; Start 07/29/19 at 13:00 Lisinopril (Prinivil) 2.5 mg DAILY PO Last administered on 07/30/19at 08:27; Start 07/30/19 at 09:00 Active Scripts Active Reported Acetaminophen 500 Mg Tablet 2 Tab PO PRN BID PRN 30 Days Prilosec Otc (Omeprazole Magnesium) 20 Mg Tablet.dr 20 Mg PO DAILY Cialis (Tadalafil) 5 Mg Tablet 1 Tab PO DAILY Duloxetine Hcl 60 Mg Capsule.dr 60 Mg PO DAILY Meloxicam 15 Mg Tablet 15 Mg PO DAILY Lipitor (Atorvastatin Calcium) 10 Mg Tablet 1 Tab PO DAILY Lisinopril 10 Mg Tablet 1 Tab PO DAILY Hydrochlorothiazide Tablet (Hydrochlorothiazide) 25 Mg Tablet 25 Mg PO DAILY Allopurinol 100 Mg Tablet 1 Tab PO DAILY Allergies Allergies: Coded Allergies: No Known Drug Allergies (Unverified , 07/28/19) ROS General: YES: Fatigue, Malaise, Appetite PSYCHOLOGICAL ROS: YES: Anxiety Eyes: Yes Decreased vision HEENT: YES: Heacaches Respiratory: YES: Cough, Shortness of breath Cardiovascular: yes Chest Pain Gastrointestinal: Yes Constipation Genitourinary: YES Other (NOCTURIA) Musculoskeletal: Yes Muscular Weakness Neurological: Yes Weakness Skin: Yes Dry Skin Physical Exam General: Alert, Oriented X3, Cooperative, No acute distress HEENT: Atraumatic, PERRLA Lungs: Clear to auscultation, Normal air movement Heart: Regular rate, Normal S1, Normal S2 Abdomen: Normal bowel sounds, No tenderness Extremities: No clubbing Skin: No breakdown, No significant lesion Neuro: Normal speech, Sensation intact Psych/Mental Status: Mental status NL, Mood NL MUSCULOSKELETAL: No joint tenderness, No deformity, No swelling Vitals VITALS Vital Signs Date Time Temp Pulse Resp B/P (MAP) Pulse Ox O2 Delivery O2 Flow Rate FiO2 07/30/19 10:57 98.0 62 20 120/75 (90) 97 Room Air 98.0 Labs Labs Laboratory Tests Test 07/28/19 20:50 07/29/19 16:06 07/30/19 04:25 White Blood Count 17.4 x10^3/uL (4.0-11.0) 9.7 x10^3/uL (4.0-11.0) Red Blood Count 4.87 x10^6/uL (4.30-5.70) 4.15 x10^6/uL (4.30-5.70) Hemoglobin 15.4 g/dL (13.0-17.5) 12.9 g/dL (13.0-17.5) Hematocrit 43.9 % (39.0-53.0) 37.4 % (39.0-53.0) Mean Corpuscular Volume 90 fL (79-100) 90 fL (79-100) Mean Corpuscular Hemoglobin 32 pg (25-35) 31 pg (25-35) Mean Corpuscular Hemoglobin Concent 35 g/dL (31-37) 35 g/dL (31-37) Red Cell Distribution Width 13.4 % (11.5-14.5) 13.3 % (11.5-14.5) Platelet Count 297 x10^3/uL (140-400) 206 x10^3/uL (140-400) Neutrophils (%) (Auto) 78 % (31-73) 67 % (31-73) Lymphocytes (%) (Auto) 13 % (24-48) 20 % (24-48) Monocytes (%) (Auto) 8 % (0-9) 12 % (0-9) Eosinophils (%) (Auto) 1 % (0-3) 2 % (0-3) Basophils (%) (Auto) 1 % (0-3) 0 % (0-3) Neutrophils # (Auto) 13.6 x10^3/uL (1.8-7.7) 6.5 x10^3/uL (1.8-7.7) Lymphocytes # (Auto) 2.2 x10^3/uL (1.0-4.8) 1.9 x10^3/uL (1.0-4.8) Monocytes # (Auto) 1.3 x10^3/uL (0.0-1.1) 1.1 x10^3/uL (0.0-1.1) Eosinophils # (Auto) 0.2 x10^3/uL (0.0-0.7) 0.2 x10^3/uL (0.0-0.7) Basophils # (Auto) 0.1 x10^3/uL (0.0-0.2) 0.0 x10^3/uL (0.0-0.2) Segmented Neutrophils % 83 % (35-66) Lymphocytes % 10 % (24-48) Monocytes % 7 % (0-10) Toxic Granulation Slight Platelet Estimate Adequate (ADEQUATE) Prothrombin Time 13.1 SEC (11.7-14.0) Prothromb Time International Ratio 1.0 (0.8-1.1) Activated Partial Thromboplast Time 33 SEC (24-38) Sodium Level 138 mmol/L (136-145) 138 mmol/L (136-145) Potassium Level 3.8 mmol/L (3.5-5.1) 3.7 mmol/L (3.5-5.1) Chloride Level 99 mmol/L (98-107) 103 mmol/L (98-107) Carbon Dioxide Level 24 mmol/L (21-32) 24 mmol/L (21-32) Anion Gap 15 (6-14) 11 (6-14) Blood Urea Nitrogen 19 mg/dL (8-26) 14 mg/dL (8-26) Creatinine 1.4 mg/dL (0.7-1.3) 1.0 mg/dL (0.7-1.3) Estimated GFR (Cockcroft-Gault) 54.6 80.4 BUN/Creatinine Ratio 14 (6-20) Glucose Level 163 mg/dL (70-99) 106 mg/dL (70-99) Calcium Level 9.3 mg/dL (8.5-10.1) 8.6 mg/dL (8.5-10.1) Magnesium Level 1.7 mg/dL (1.8-2.4) Total Bilirubin 0.2 mg/dL (0.2-1.0) Aspartate Amino Transf (AST/SGOT) 28 U/L (15-37) Alanine Aminotransferase (ALT/SGPT) 62 U/L (16-63) Alkaline Phosphatase 142 U/L (46-116) Creatine Kinase 213 U/L (39-308) Creatine Kinase MB (Mass) 2.8 ng/mL (0.0-3.6) Creatine Kinase MB Relative Index 1.3 % (0-4) Troponin I Quantitative 0.066 ng/mL (0.000-0.055) HU-Wfa-D-Type Natriuretic Peptide 38 pg/mL (0-124) Total Protein 8.1 g/dL (6.4-8.2) Albumin 4.2 g/dL (3.4-5.0) 3.1 g/dL (3.4-5.0) Albumin/Globulin Ratio 1.1 (1.0-1.7) Lipase 72 U/L (73-393) Urine Collection Type Unknown Urine Color Yellow Urine Clarity Clear Urine pH 5.5 (<5.0-8.0) Urine Specific [place] 1.010 (1.000-1.030) Urine Protein Negative mg/dL (NEG-TRACE) Urine Glucose (UA) Negative mg/dL (NEG) Urine Ketones (Stick) Negative mg/dL (NEG) Urine Blood Negative (NEG) Urine Nitrite Negative (NEG) Urine Bilirubin Negative (NEG) Urine Urobilinogen Dipstick 0.2 mg/dL (0.2 mg/dL) Urine Leukocyte Esterase Negative (NEG) Urine RBC 0 /HPF (0-2) Urine WBC 0 /HPF (0-4) Urine Squamous Epithelial Cells Occ /LPF Urine Bacteria 0 /HPF (0-FEW) Urine Opiates Screen Neg (NEG) Urine Methadone Screen Neg (NEG) Urine Barbiturates Neg (NEG) Urine Phencyclidine Screen Neg (NEG) Urine Amphetamine/Methamphetamine Neg (NEG) Urine Benzodiazepines Screen Neg (NEG) Urine Cocaine Screen Neg (NEG) Urine Cannabinoids Screen Neg (NEG) Urine Ethyl Alcohol Neg (NEG) Phosphorus Level 3.2 mg/dL (2.6-4.7) Triglycerides Level 138 mg/dL (0-150) Cholesterol Level 170 mg/dL (0-200) LDL Cholesterol, Calculated 99 mg/dL (0-100) VLDL Cholesterol, Calculated 28 mg/dL (0-40) Non-HDL Cholesterol Calculated 127 mg/dL (0-129) HDL Cholesterol 43 mg/dL (40-60) Cholesterol/HDL Ratio 4.0 Laboratory Tests Test 07/29/19 16:06 07/30/19 04:25 Urine Collection Type Unknown Urine Color Yellow Urine Clarity Clear Urine pH 5.5 (<5.0-8.0) Urine Specific [place] 1.010 (1.000-1.030) Urine Protein Negative mg/dL (NEG-TRACE) Urine Glucose (UA) Negative mg/dL (NEG) Urine Ketones (Stick) Negative mg/dL (NEG) Urine Blood Negative (NEG) Urine Nitrite Negative (NEG) Urine Bilirubin Negative (NEG) Urine Urobilinogen Dipstick 0.2 mg/dL (0.2 mg/dL) Urine Leukocyte Esterase Negative (NEG) Urine RBC 0 /HPF (0-2) Urine WBC 0 /HPF (0-4) Urine Squamous Epithelial Cells Occ /LPF Urine Bacteria 0 /HPF (0-FEW) Urine Opiates Screen Neg (NEG) Urine Methadone Screen Neg (NEG) Urine Barbiturates Neg (NEG) Urine Phencyclidine Screen Neg (NEG) Urine Amphetamine/Methamphetamine Neg (NEG) Urine Benzodiazepines Screen Neg (NEG) Urine Cocaine Screen Neg (NEG) Urine Cannabinoids Screen Neg (NEG) Urine Ethyl Alcohol Neg (NEG) White Blood Count 9.7 x10^3/uL (4.0-11.0) Red Blood Count 4.15 x10^6/uL (4.30-5.70) Hemoglobin 12.9 g/dL (13.0-17.5) Hematocrit 37.4 % (39.0-53.0) Mean Corpuscular Volume 90 fL (79-100) Mean Corpuscular Hemoglobin 31 pg (25-35) Mean Corpuscular Hemoglobin Concent 35 g/dL (31-37) Red Cell Distribution Width 13.3 % (11.5-14.5) Platelet Count 206 x10^3/uL (140-400) Neutrophils (%) (Auto) 67 % (31-73) Lymphocytes (%) (Auto) 20 % (24-48) Monocytes (%) (Auto) 12 % (0-9) Eosinophils (%) (Auto) 2 % (0-3) Basophils (%) (Auto) 0 % (0-3) Neutrophils # (Auto) 6.5 x10^3/uL (1.8-7.7) Lymphocytes # (Auto) 1.9 x10^3/uL (1.0-4.8) Monocytes # (Auto) 1.1 x10^3/uL (0.0-1.1) Eosinophils # (Auto) 0.2 x10^3/uL (0.0-0.7) Basophils # (Auto) 0.0 x10^3/uL (0.0-0.2) Sodium Level 138 mmol/L (136-145) Potassium Level 3.7 mmol/L (3.5-5.1) Chloride Level 103 mmol/L (98-107) Carbon Dioxide Level 24 mmol/L (21-32) Anion Gap 11 (6-14) Blood Urea Nitrogen 14 mg/dL (8-26) Creatinine 1.0 mg/dL (0.7-1.3) Estimated GFR (Cockcroft-Gault) 80.4 Glucose Level 106 mg/dL (70-99) Calcium Level 8.6 mg/dL (8.5-10.1) Phosphorus Level 3.2 mg/dL (2.6-4.7) Albumin 3.1 g/dL (3.4-5.0) Triglycerides Level 138 mg/dL (0-150) Cholesterol Level 170 mg/dL (0-200) LDL Cholesterol, Calculated 99 mg/dL (0-100) VLDL Cholesterol, Calculated 28 mg/dL (0-40) Non-HDL Cholesterol Calculated 127 mg/dL (0-129) HDL Cholesterol 43 mg/dL (40-60) Cholesterol/HDL Ratio 4.0 Assessment/Plan Assessment/Plan [id number] NEG HX OF HTN AMI WITH PTCA AND STENT DYSLIPIDEMIA TOBACCOISM PLAN ENC AVOIDING NSAIDS ALSO ASKED HIM TO MINIMIZE MOBIC USE AT HOME ENC TOBACCO CESSATION CONT CRISTIN-I HYDRATION WILL FOLLOW NEEDED SABA JAVIER MD Jul 30, 2019 11:20
--- NOTE | 2019-07-30 12:48 | PDOC ---
GABINO WEST ENGINE OILER 07/30/19 1248: CARDIO Progress Notes Date and Time Date of Service 07/30/2019 Time of Evaluation 1230 Subjective Subjective: No Chest Pain, No shortness of breath, No Palpitations Vitals Vitals Vital Signs Date Time Temp Pulse Resp B/P (MAP) Pulse Ox O2 Delivery O2 Flow Rate FiO2 07/30/19 10:57 98.0 62 20 120/75 (90) 97 Room Air 98.0 Weight Weight [ ] Input and Output Intake and Output Intake and Output 07/30/19 07:00 Intake Total 980 ml Output Total 300 ml Balance 680 ml Intake Oral 980 ml Output Urine Total 300 ml # Voids 3 Laboratory Labs Laboratory Tests Test 07/29/19 16:06 07/30/19 04:25 Urine Collection Type Unknown Urine Color Yellow Urine Clarity Clear Urine pH 5.5 (<5.0-8.0) Urine Specific [place] 1.010 (1.000-1.030) Urine Protein Negative mg/dL (NEG-TRACE) Urine Glucose (UA) Negative mg/dL (NEG) Urine Ketones (Stick) Negative mg/dL (NEG) Urine Blood Negative (NEG) Urine Nitrite Negative (NEG) Urine Bilirubin Negative (NEG) Urine Urobilinogen Dipstick 0.2 mg/dL (0.2 mg/dL) Urine Leukocyte Esterase Negative (NEG) Urine RBC 0 /HPF (0-2) Urine WBC 0 /HPF (0-4) Urine Squamous Epithelial Cells Occ /LPF Urine Bacteria 0 /HPF (0-FEW) Urine Opiates Screen Neg (NEG) Urine Methadone Screen Neg (NEG) Urine Barbiturates Neg (NEG) Urine Phencyclidine Screen Neg (NEG) Urine Amphetamine/Methamphetamine Neg (NEG) Urine Benzodiazepines Screen Neg (NEG) Urine Cocaine Screen Neg (NEG) Urine Cannabinoids Screen Neg (NEG) Urine Ethyl Alcohol Neg (NEG) White Blood Count 9.7 x10^3/uL (4.0-11.0) Red Blood Count 4.15 x10^6/uL (4.30-5.70) Hemoglobin 12.9 g/dL (13.0-17.5) Hematocrit 37.4 % (39.0-53.0) Mean Corpuscular Volume 90 fL (79-100) Mean Corpuscular Hemoglobin 31 pg (25-35) Mean Corpuscular Hemoglobin Concent 35 g/dL (31-37) Red Cell Distribution Width 13.3 % (11.5-14.5) Platelet Count 206 x10^3/uL (140-400) Neutrophils (%) (Auto) 67 % (31-73) Lymphocytes (%) (Auto) 20 % (24-48) Monocytes (%) (Auto) 12 % (0-9) Eosinophils (%) (Auto) 2 % (0-3) Basophils (%) (Auto) 0 % (0-3) Neutrophils # (Auto) 6.5 x10^3/uL (1.8-7.7) Lymphocytes # (Auto) 1.9 x10^3/uL (1.0-4.8) Monocytes # (Auto) 1.1 x10^3/uL (0.0-1.1) Eosinophils # (Auto) 0.2 x10^3/uL (0.0-0.7) Basophils # (Auto) 0.0 x10^3/uL (0.0-0.2) Sodium Level 138 mmol/L (136-145) Potassium Level 3.7 mmol/L (3.5-5.1) Chloride Level 103 mmol/L (98-107) Carbon Dioxide Level 24 mmol/L (21-32) Anion Gap 11 (6-14) Blood Urea Nitrogen 14 mg/dL (8-26) Creatinine 1.0 mg/dL (0.7-1.3) Estimated GFR (Cockcroft-Gault) 80.4 Glucose Level 106 mg/dL (70-99) Calcium Level 8.6 mg/dL (8.5-10.1) Phosphorus Level 3.2 mg/dL (2.6-4.7) Albumin 3.1 g/dL (3.4-5.0) Triglycerides Level 138 mg/dL (0-150) Cholesterol Level 170 mg/dL (0-200) LDL Cholesterol, Calculated 99 mg/dL (0-100) VLDL Cholesterol, Calculated 28 mg/dL (0-40) Non-HDL Cholesterol Calculated 127 mg/dL (0-129) HDL Cholesterol 43 mg/dL (40-60) Cholesterol/HDL Ratio 4.0 Physical Exam HEENT: Neck Supple W Full Motion Chest: Symmetric LUNGS: Clear to Auscultation Heart: S1S2, RRR (SR) Abdomen: Soft N/T Extremities: No Edema, No Calf Tenderness Neurology: alert, oriented, follow commands Other Exams right groin arteriotomy site intact, mild bruising otherwise no swelling or hematoma, neurovascular status to bilateral LE intact. Assessment Assessment 1. Acute inferoposterior wall STEMI: S/P PCI/FRED to RCA 2. Cardiomyopathy: EF at 40-45% 3. HTN; controlled 4. HLP 5. Hyperglycemia 6. Tobaccoism Recommendations 1. ASA/brilinta 2. Statin. Cardiac rehab 3. Metoprolol and start on low dose lisinopril. 4. A1C. smoking cessation. dietitian consult 5. Follow up in office. Justicifation of Admission Dx: Justifications for Admission: Justification of Admission Dx: Yes Angina: [facility] [place]: Acute STEMI OZIEL EDMOND MD 07/30/19 1651: CARDIO Progress Notes Assessment Assessment Patient seen and examined. Agree with ACADEMY EDUCATION DIRECTOR's assessment and plan. s/p PCI/FRED to RCA in the setting of STEMI Telemetry did not show any further episodes of NSVT. Continue dual antiplatelet therapy. Cardiac rehabilitation referral and follow-up in 1 month. GABINO WEST APRN Jul 30, 2019 12:48 OZIEL EDMOND MD Jul 30, 2019 16:51
[2019-07-30] MEDS ORDERED: ASPI-612 PO (12:54)
[2019-07-30] MEDS ORDERED: METO25TA4 PO (12:54)
[2019-07-30] MEDS ORDERED: ATOR20TA58 PO (12:54)
[2019-07-30] MEDS ORDERED: LISI-338 PO (12:54)
[2019-07-30] MEDS ORDERED: TICA90TA PO (12:54)
--- NOTE | 2019-07-30 13:56 | PDOC3 ---
Discharge Summary Date of Admission: Jul 28, 2019 Date of Discharge: Jul 30, 2019 Follow-Up: 3-5 days Admitting Diagnosis comment: DISCHARGE DX Assessment/Plan IMPRESSION 1. Severe single-vessel coronary disease involving the right coronary artery 2. Successful PCI/drug-eluting stents placement to the right coronary artery 3. Postero-basal wall hypokinesis with ejection fraction estimated at 55% 4. tobacco abuse disorder 5. remote hx alcohol abuse plan ADMIT [facility] CARDIOLOGY CONSULTED OK WITH D/C 07/29 Smoking cessation discussed home meds risk reduction strategies weight loss diet dvt prophylaxis ASA/brilinta Statin. Cardiac rehab Metoprolol and start on low dose lisinopril. D/C PLANNING 35 MIN Justicifation of Admission Dx: Justifications for Admission: Justification of Admission Dx: Yes Angina: Symp at Rest [place]: Acute STEMI Vitals Vitals Vital Signs Date Time Temp Pulse Resp B/P (MAP) Pulse Ox O2 Delivery O2 Flow Rate FiO2 07/30/19 10:57 98.0 62 20 120/75 (90) 97 Room Air 98.0 Physical Exam General: Alert, Oriented X3, Cooperative, No acute distress Heart: Regular rate, Normal S1, Normal S2 Lungs: Clear Abdomen: Normal bowel sounds, Soft Extremities: No cyanosis, No edema Skin: No significant lesion FINAL DIAGNOSIS Problems Medical Problems: (1) STEMI (ST elevation myocardial infarction) Status: Acute Brief Hospital Course Mr. Gonzalez is a 44 old [sex] who presented with [stemi ] CONDITION AT DISCHARGE: Improved Discharge Medications Current Medications Aspirin (Katelyn Aspirin) 325 mg 1X ONCE PO Last administered on 07/28/19at 21:05; Start 07/28/19 at 21:00; Stop 07/28/19 at 21:06; Status DC Sodium Chloride 1,000 ml @ 1,000 mls/hr 1X ONCE IV Last administered on 07/28/19at 21:00; Start 07/28/19 at 21:00; Stop 07/28/19 at 22:06; Status DC Fentanyl Citrate (Fentanyl 2ml Vial) 50 mcg 1X ONCE IV Last administered on 07/28/19at 20:58; Start 07/28/19 at 21:00; Stop 07/28/19 at 21:06; Status DC Heparin Sodium (Porcine) (Heparin Sodium) 4,000 unit 1X ONCE IV Last administered on 07/28/19at 20:59; Start 07/28/19 at 21:00; Stop 07/28/19 at 21:06; Status DC Ondansetron HCl (Zofran) 4 mg 1X ONCE IVP Last administered on 07/28/19at 20:58; Start 07/28/19 at 21:00; Stop 07/28/19 at 21:06; Status DC Metoprolol Tartrate (Lopressor Vial) 10 mg 1X ONCE IVP Last administered on 07/28/19at 21:04; Start 07/28/19 at 21:00; Stop 07/28/19 at 21:06; Status DC Fentanyl Citrate (Fentanyl 2ml Vial) 50 mcg 1X ONCE IV Last administered on 07/28/19at 21:18; Start 07/28/19 at 21:30; Stop 07/28/19 at 21:31; Status DC Iodixanol (Visipaque 320) 100 ml STK-MED ONCE .ROUTE ; Start 07/28/19 at 21:12; Stop 07/28/19 at 21:12; Status DC Lidocaine HCl (Xylocaine-Mpf 1% 2ml Vial) 2 ml STK-MED ONCE .ROUTE ; Start 07/28/19 at 21:12; Stop 07/28/19 at 21:12; Status DC Heparin Sodium/ Sodium Chloride 500 ml @ As Directed STK-MED ONCE .ROUTE ; Start 07/28/19 at 21:12; Stop 07/28/19 at 21:12; Status DC Midazolam HCl (Versed) 2 mg STK-MED ONCE .ROUTE ; Start 07/28/19 at 21:14; Stop 07/28/19 at 21:14; Status DC Heparin Sodium (Porcine) (Heparin Sodium) 10,000 unit STK-MED ONCE .ROUTE ; Start 07/28/19 at 21:14; Stop 07/28/19 at 21:14; Status DC Verapamil HCl (Verapamil) 5 mg STK-MED ONCE .ROUTE ; Start 07/28/19 at 21:14; Stop 07/28/19 at 21:14; Status DC Lidocaine HCl (Lidocaine 1% 20ml Vial) 20 ml STK-MED ONCE .ROUTE ; Start 07/28/19 at 21:14; Stop 07/28/19 at 21:14; Status DC Fentanyl Citrate (Fentanyl 2ml Vial) 100 mcg STK-MED ONCE .ROUTE ; Start 07/28/19 at 21:13; Stop 07/28/19 at 21:14; Status DC Nitroglycerin (Nitroglycerin) 200 mcg STK-MED ONCE .ROUTE ; Start 07/28/19 at 21:14; Stop 07/28/19 at 21:15; Status DC Bivalirudin (Angiomax) 250 mg STK-MED ONCE IV ; Start 07/28/19 at 21:40; Stop 07/28/19 at 21:40; Status DC Heparin Sodium/ Sodium Chloride (HEPARIN for ARTERIAL LINE FLUSH) 1,000 unit 1X ONCE IART Last administered on 07/28/19at 22:00; Start 07/28/19 at 22:00; Stop 07/28/19 at 22:06; Status DC Heparin Sodium/ Sodium Chloride (HEPARIN for ARTERIAL LINE FLUSH) 1,000 unit 1X ONCE IART Last administered on 07/28/19at 22:00; Start 07/28/19 at 22:00; Stop 07/28/19 at 22:06; Status DC Midazolam HCl (Versed) 2 mg 1X ONCE IV Last administered on 07/28/19at 22:00; Start 07/28/19 at 22:00; Stop 07/28/19 at 22:06; Status DC Fentanyl Citrate (Fentanyl 2ml Vial) 100 mcg 1X ONCE IV Last administered on 07/28/19at 22:00; Start 07/28/19 at 22:00; Stop 07/28/19 at 22:06; Status DC Iodixanol (Visipaque 320) 100 ml 1X ONCE IART Last administered on 07/28/19at 22:00; Start 07/28/19 at 22:00; Stop 07/28/19 at 22:06; Status DC Lidocaine HCl (Lidocaine 1% 20ml Vial) 20 ml 1X ONCE INJ Last administered on 07/28/19at 22:00; Start 07/28/19 at 22:00; Stop 07/28/19 at 22:06; Status DC Iodixanol (Visipaque 320) 100 ml STK-MED ONCE .ROUTE ; Start 07/28/19 at 21:57; Stop 07/28/19 at 21:58; Status DC Ticagrelor (Brilinta) 180 mg 1X ONCE PO Last administered on 07/28/19at 22:28; Start 07/28/19 at 22:30; Stop 07/28/19 at 22:31; Status DC Aspirin (Katelyn Aspirin) 325 mg 1X ONCE PO Last administered on 07/28/19at 22:28; Start 07/28/19 at 22:30; Stop 07/28/19 at 22:31; Status DC Bivalirudin (Angiomax) 250 mg STK-MED ONCE IV ; Start 07/28/19 at 22:06; Stop 07/28/19 at 22:06; Status DC Bivalirudin (Angiomax) 250 mg 1X ONCE IV Last administered on 07/28/19at 22:19; Start 07/28/19 at 22:30; Stop 07/28/19 at 22:31; Status DC Ticagrelor (Brilinta) 90 mg STK-MED ONCE .ROUTE ; Start 07/28/19 at 22:14; Stop 07/28/19 at 22:15; Status DC Aspirin (Katelyn Aspirin) 325 mg STK-MED ONCE .ROUTE ; Start 07/28/19 at 22:15; Stop 07/28/19 at 22:15; Status DC Sodium Chloride (Normal Saline Flush) 3 ml QSHIFT PRN IV AFTER MEDS AND BLOOD DRAWS; Start 07/28/19 at 22:15 Sodium Chloride 1,000 ml @ 100 mls/hr Q10H IV Last administered on 07/29/19at 22:54; Start 07/28/19 at 22:15 Aspirin (Ecotrin) 81 mg DAILYWBKFT PO Last administered on 07/30/19at 08:16; Start 07/29/19 at 08:00 Ticagrelor (Brilinta) 90 mg BID PO Last administered on 07/30/19at 08:16; Start 07/29/19 at 09:00 Metoprolol Tartrate (Lopressor) 12.5 mg BID PO Last administered on 07/30/19at 08:17; Start 07/29/19 at 09:00 Atorvastatin Calcium (Lipitor) 40 mg QHS PO Last administered on 07/29/19at 21:18; Start 07/29/19 at 21:00 Acetaminophen (Tylenol) 650 mg PRN Q6HRS PRN PO MILD PAIN / TEMP > 100.3'F Last administered on 07/29/19at 04:58; Start 07/28/19 at 22:15; Stop 07/29/19 at 13:03; Status DC Nitroglycerin (Nitrostat) 0.4 mg PRN Q5MIN PRN SL CHEST PAIN; Start 07/28/19 at 22:15 Nicotine (Nicoderm Cq 21mg) 1 patch DAILY TD Last administered on 07/30/19at 08:17; Start 07/29/19 at 11:00 Acetaminophen (Tylenol) 1,000 mg PRN BID PRN PO pain or fever Last administered on 07/29/19at 13:20; Start 07/29/19 at 12:15; Stop 07/30/19 at 09:51; Status DC Allopurinol (Zyloprim) 100 mg DAILY PO Last administered on 07/30/19at 08:17; Start 07/29/19 at 13:00 Atorvastatin Calcium (Lipitor) 10 mg QHS PO Last administered on 07/29/19at 21:18; Start 07/29/19 at 21:00; Stop 07/30/19 at 09:52; Status DC Duloxetine HCl (Cymbalta) 60 mg DAILY PO Last administered on 07/30/19at 08:17; Start 07/29/19 at 13:00 Meloxicam (Mobic) 15 mg DAILY PO ; Start 07/29/19 at 13:00; Stop 07/29/19 at 12:57; Status DC Pantoprazole Sodium (Protonix) 40 mg DAILYAC PO Last administered on 07/30/19at 08:16; Start 07/29/19 at 16:30 Non-Formulary Medication (Tadalafil (Cialis)) 1 tab DAILY PO ; Start 07/30/19 at 09:00; Status UNV Magnesium Sulfate 50 ml @ 25 mls/hr 1X ONCE IV Last administered on 07/29/19at 13:21; Start 07/29/19 at 12:45; Stop 07/29/19 at 14:44; Status DC Sodium Chloride (Normal Saline Flush) 3 ml QSHIFT PRN IV AFTER MEDS AND BLOOD DRAWS; Start 07/29/19 at 13:00 Ondansetron HCl (Zofran) 4 mg PRN Q4HRS PRN IV NAUSEA/VOMITING; Start 07/29/19 at 13:00 Zolpidem Tartrate (Ambien) 5 mg PRN QHS PRN PO INSOMNIA; Start 07/29/19 at 13:00 Acetaminophen (Tylenol) 650 mg PRN Q4HRS PRN PO TEMP OVER 100.4F OR MILD PAIN Last administered on 07/29/19at 19:13; Start 07/29/19 at 13:00 Docusate Sodium (Colace) 100 mg PRN BID PRN PO HARD STOOLS; Start 07/29/19 at 13:00 Albuterol Sulfate (Ventolin Neb Soln) 2.5 mg PRN Q4HRS PRN NEB SHORTNESS OF BREATH; Start 07/29/19 at 13:00 Guaifenesin (Robitussin) 200 mg PRN Q4HRS PRN PO COUGH; Start 07/29/19 at 13:00 Lorazepam (Ativan) 0.5 mg PRN Q4HRS PRN PO ANXIETY / AGITATION Last administered on 07/29/19at 13:20; Start 07/29/19 at 13:00 Lisinopril (Prinivil) 2.5 mg DAILY PO Last administered on 07/30/19at 08:27; Start 07/30/19 at 09:00 Active Scripts Active Reported Acetaminophen 500 Mg Tablet 2 Tab PO PRN BID PRN 30 Days Prilosec Otc (Omeprazole Magnesium) 20 Mg Tablet.dr 20 Mg PO DAILY Cialis (Tadalafil) 5 Mg Tablet 1 Tab PO DAILY Duloxetine Hcl 60 Mg Capsule.dr 60 Mg PO DAILY Meloxicam 15 Mg Tablet 15 Mg PO DAILY Lipitor (Atorvastatin Calcium) 10 Mg Tablet 1 Tab PO DAILY Lisinopril 10 Mg Tablet 1 Tab PO DAILY Hydrochlorothiazide Tablet (Hydrochlorothiazide) 25 Mg Tablet 25 Mg PO DAILY Allopurinol 100 Mg Tablet 1 Tab PO DAILY Vital Signs Vital Signs Date Time Temp Pulse Resp B/P (MAP) Pulse Ox O2 Delivery O2 Flow Rate FiO2 07/30/19 10:57 98.0 62 20 120/75 (90) 97 Room Air 98.0 Labs Laboratory Tests Test 07/28/19 20:50 07/29/19 16:06 07/30/19 04:25 White Blood Count 17.4 x10^3/uL (4.0-11.0) 9.7 x10^3/uL (4.0-11.0) Red Blood Count 4.87 x10^6/uL (4.30-5.70) 4.15 x10^6/uL (4.30-5.70) Hemoglobin 15.4 g/dL (13.0-17.5) 12.9 g/dL (13.0-17.5) Hematocrit 43.9 % (39.0-53.0) 37.4 % (39.0-53.0) Mean Corpuscular Volume 90 fL (79-100) 90 fL (79-100) Mean Corpuscular Hemoglobin 32 pg (25-35) 31 pg (25-35) Mean Corpuscular Hemoglobin Concent 35 g/dL (31-37) 35 g/dL (31-37) Red Cell Distribution Width 13.4 % (11.5-14.5) 13.3 % (11.5-14.5) Platelet Count 297 x10^3/uL (140-400) 206 x10^3/uL (140-400) Neutrophils (%) (Auto) 78 % (31-73) 67 % (31-73) Lymphocytes (%) (Auto) 13 % (24-48) 20 % (24-48) Monocytes (%) (Auto) 8 % (0-9) 12 % (0-9) Eosinophils (%) (Auto) 1 % (0-3) 2 % (0-3) Basophils (%) (Auto) 1 % (0-3) 0 % (0-3) Neutrophils # (Auto) 13.6 x10^3/uL (1.8-7.7) 6.5 x10^3/uL (1.8-7.7) Lymphocytes # (Auto) 2.2 x10^3/uL (1.0-4.8) 1.9 x10^3/uL (1.0-4.8) Monocytes # (Auto) 1.3 x10^3/uL (0.0-1.1) 1.1 x10^3/uL (0.0-1.1) Eosinophils # (Auto) 0.2 x10^3/uL (0.0-0.7) 0.2 x10^3/uL (0.0-0.7) Basophils # (Auto) 0.1 x10^3/uL (0.0-0.2) 0.0 x10^3/uL (0.0-0.2) Segmented Neutrophils % 83 % (35-66) Lymphocytes % 10 % (24-48) Monocytes % 7 % (0-10) Toxic Granulation Slight Platelet Estimate Adequate (ADEQUATE) Prothrombin Time 13.1 SEC (11.7-14.0) Prothromb Time International Ratio 1.0 (0.8-1.1) Activated Partial Thromboplast Time 33 SEC (24-38) Sodium Level 138 mmol/L (136-145) 138 mmol/L (136-145) Potassium Level 3.8 mmol/L (3.5-5.1) 3.7 mmol/L (3.5-5.1) Chloride Level 99 mmol/L (98-107) 103 mmol/L (98-107) Carbon Dioxide Level 24 mmol/L (21-32) 24 mmol/L (21-32) Anion Gap 15 (6-14) 11 (6-14) Blood Urea Nitrogen 19 mg/dL (8-26) 14 mg/dL (8-26) Creatinine 1.4 mg/dL (0.7-1.3) 1.0 mg/dL (0.7-1.3) Estimated GFR (Cockcroft-Gault) 54.6 80.4 BUN/Creatinine Ratio 14 (6-20) Glucose Level 163 mg/dL (70-99) 106 mg/dL (70-99) Calcium Level 9.3 mg/dL (8.5-10.1) 8.6 mg/dL (8.5-10.1) Magnesium Level 1.7 mg/dL (1.8-2.4) Total Bilirubin 0.2 mg/dL (0.2-1.0) Aspartate Amino Transf (AST/SGOT) 28 U/L (15-37) Alanine Aminotransferase (ALT/SGPT) 62 U/L (16-63) Alkaline Phosphatase 142 U/L (46-116) Creatine Kinase 213 U/L (39-308) Creatine Kinase MB (Mass) 2.8 ng/mL (0.0-3.6) Creatine Kinase MB Relative Index 1.3 % (0-4) Troponin I Quantitative 0.066 ng/mL (0.000-0.055) FE-Wpc-N-Type Natriuretic Peptide 38 pg/mL (0-124) Total Protein 8.1 g/dL (6.4-8.2) Albumin 4.2 g/dL (3.4-5.0) 3.1 g/dL (3.4-5.0) Albumin/Globulin Ratio 1.1 (1.0-1.7) Lipase 72 U/L (73-393) Urine Collection Type Unknown Urine Color Yellow Urine Clarity Clear Urine pH 5.5 (<5.0-8.0) Urine Specific [place] 1.010 (1.000-1.030) Urine Protein Negative mg/dL (NEG-TRACE) Urine Glucose (UA) Negative mg/dL (NEG) Urine Ketones (Stick) Negative mg/dL (NEG) Urine Blood Negative (NEG) Urine Nitrite Negative (NEG) Urine Bilirubin Negative (NEG) Urine Urobilinogen Dipstick 0.2 mg/dL (0.2 mg/dL) Urine Leukocyte Esterase Negative (NEG) Urine RBC 0 /HPF (0-2) Urine WBC 0 /HPF (0-4) Urine Squamous Epithelial Cells Occ /LPF Urine Bacteria 0 /HPF (0-FEW) Urine Opiates Screen Neg (NEG) Urine Methadone Screen Neg (NEG) Urine Barbiturates Neg (NEG) Urine Phencyclidine Screen Neg (NEG) Urine Amphetamine/Methamphetamine Neg (NEG) Urine Benzodiazepines Screen Neg (NEG) Urine Cocaine Screen Neg (NEG) Urine Cannabinoids Screen Neg (NEG) Urine Ethyl Alcohol Neg (NEG) Phosphorus Level 3.2 mg/dL (2.6-4.7) Triglycerides Level 138 mg/dL (0-150) Cholesterol Level 170 mg/dL (0-200) LDL Cholesterol, Calculated 99 mg/dL (0-100) VLDL Cholesterol, Calculated 28 mg/dL (0-40) Non-HDL Cholesterol Calculated 127 mg/dL (0-129) HDL Cholesterol 43 mg/dL (40-60) Cholesterol/HDL Ratio 4.0 Laboratory Tests Test 07/29/19 16:06 07/30/19 04:25 Urine Collection Type Unknown Urine Color Yellow Urine Clarity Clear Urine pH 5.5 (<5.0-8.0) Urine Specific [place] 1.010 (1.000-1.030) Urine Protein Negative mg/dL (NEG-TRACE) Urine Glucose (UA) Negative mg/dL (NEG) Urine Ketones (Stick) Negative mg/dL (NEG) Urine Blood Negative (NEG) Urine Nitrite Negative (NEG) Urine Bilirubin Negative (NEG) Urine Urobilinogen Dipstick 0.2 mg/dL (0.2 mg/dL) Urine Leukocyte Esterase Negative (NEG) Urine RBC 0 /HPF (0-2) Urine WBC 0 /HPF (0-4) Urine Squamous Epithelial Cells Occ /LPF Urine Bacteria 0 /HPF (0-FEW) Urine Opiates Screen Neg (NEG) Urine Methadone Screen Neg (NEG) Urine Barbiturates Neg (NEG) Urine Phencyclidine Screen Neg (NEG) Urine Amphetamine/Methamphetamine Neg (NEG) Urine Benzodiazepines Screen Neg (NEG) Urine Cocaine Screen Neg (NEG) Urine Cannabinoids Screen Neg (NEG) Urine Ethyl Alcohol Neg (NEG) White Blood Count 9.7 x10^3/uL (4.0-11.0) Red Blood Count 4.15 x10^6/uL (4.30-5.70) Hemoglobin 12.9 g/dL (13.0-17.5) Hematocrit 37.4 % (39.0-53.0) Mean Corpuscular Volume 90 fL (79-100) Mean Corpuscular Hemoglobin 31 pg (25-35) Mean Corpuscular Hemoglobin Concent 35 g/dL (31-37) Red Cell Distribution Width 13.3 % (11.5-14.5) Platelet Count 206 x10^3/uL (140-400) Neutrophils (%) (Auto) 67 % (31-73) Lymphocytes (%) (Auto) 20 % (24-48) Monocytes (%) (Auto) 12 % (0-9) Eosinophils (%) (Auto) 2 % (0-3) Basophils (%) (Auto) 0 % (0-3) Neutrophils # (Auto) 6.5 x10^3/uL (1.8-7.7) Lymphocytes # (Auto) 1.9 x10^3/uL (1.0-4.8) Monocytes # (Auto) 1.1 x10^3/uL (0.0-1.1) Eosinophils # (Auto) 0.2 x10^3/uL (0.0-0.7) Basophils # (Auto) 0.0 x10^3/uL (0.0-0.2) Sodium Level 138 mmol/L (136-145) Potassium Level 3.7 mmol/L (3.5-5.1) Chloride Level 103 mmol/L (98-107) Carbon Dioxide Level 24 mmol/L (21-32) Anion Gap 11 (6-14) Blood Urea Nitrogen 14 mg/dL (8-26) Creatinine 1.0 mg/dL (0.7-1.3) Estimated GFR (Cockcroft-Gault) 80.4 Glucose Level 106 mg/dL (70-99) Calcium Level 8.6 mg/dL (8.5-10.1) Phosphorus Level 3.2 mg/dL (2.6-4.7) Albumin 3.1 g/dL (3.4-5.0) Triglycerides Level 138 mg/dL (0-150) Cholesterol Level 170 mg/dL (0-200) LDL Cholesterol, Calculated 99 mg/dL (0-100) VLDL Cholesterol, Calculated 28 mg/dL (0-40) Non-HDL Cholesterol Calculated 127 mg/dL (0-129) HDL Cholesterol 43 mg/dL (40-60) Cholesterol/HDL Ratio 4.0 Allergies Allergies Coded Allergies Type Severity Reaction Last Updated Verified No Known Drug Allergies 07/28/19 No Disposition/Orders: D/C to Home Justicifation of Admission Dx: Justifications for Admission: Justification of Admission Dx: Yes Angina: Symp at Rest [place]: Acute STEMI LITTLE ROLDAN MD Jul 30, 2019 13:56
--- NOTE | 2019-07-30 13:57 | DISCH ---
DISCHARGE INSTRUCTIONS Condition on Discharge Condition on Discharge: Stable Activity After Discharge Activity Instructions for Disc: Activity as tolerated Lifting Instructions after Dis: No pulling or pushing Driving Instructions after Dis: Do not drive today Weight Bearing Status after Di: As tolerated Diet after Discharge Diet after Discharge: Cardiac Diet Texture: Regular Liquid Texture: Thin Liquid Wound Incision Care Wound/Incision Care: No wound care needed Checks after Discharge Checks after discharge: Check blood press - daily Community/Resources/Services Services at Discharge: Outpatient Therapy Contacting the [facility]Ronni after DC Call your doctor for: If your condition worsens Follow-Up Follow up with: Dr. Oakes Sep 11 @ 1039 [phone] Follow Up With: Primary care provider in 1 week Treatment/Equipment after DC Adaptive Equipment Issued: None LITTLE ROLDAN MD Jul 30, 2019 13:57
[2019-07-30] MEDS ORDERED: NITR0.4T24 SL (13:59)
[2019-07-30] MEDS ORDERED: DOCU-153 PO (13:59)
--- NOTE | 2019-07-30 14:36 | NUR ---
Discharge Note: AISSATOU JACKSON FOSTER Discharge instructions and discharge home medications reviewed with Patient and a copy given. All questions have been answered and understanding verbalized. The following instructions and handouts were given: metoprolol, lisinopril, post-cath, atorvastatin, nitroglycerin, ticagrelor Patient discharged to home with spouse via ambulatory.
[2019-07-31 01:10] LABS: HEMOGLOBIN A1C 6.3 % (4.8-5.6)
== END 2019-07-30 14:39 | disposition home or self-care (01) | DRG 247 ==
LOC: ER 20:41 → 1 WEST ICU 22:30 → 2 NORTH 07-29 11:48
PROVIDERS: ADMIT Internal Medicine; ATTEND Internal Medicine
PROC: 027035Z Dilation of Coronary Artery, One Artery with Two Drug-eluting Intraluminal Devices, Percutaneous Approach (ICD-10-PCS; principal; 2019-07-28)
PROC: 4A023N7 Measurement of Cardiac Sampling and Pressure, Left Heart, Percutaneous Approach (ICD-10-PCS; 2019-07-28)
PROC: B211YZZ Fluoroscopy of Multiple Coronary Arteries using Other Contrast (ICD-10-PCS; 2019-07-28)
PROC: B215YZZ Fluoroscopy of Left Heart using Other Contrast (ICD-10-PCS; 2019-07-28)
DX: I21.19 ST elevation (STEMI) myocardial infarction involving other coronary artery of inferior wall (principal); I42.9 Cardiomyopathy, unspecified; I47.2 Ventricular tachycardia; N17.9 Acute kidney failure, unspecified; E78.00 Pure hypercholesterolemia, unspecified; E78.5 Hyperlipidemia, unspecified; F17.210 Nicotine dependence, cigarettes, uncomplicated; G47.00 Insomnia, unspecified; I10 Essential (primary) hypertension; I25.10 Atherosclerotic heart disease of native coronary artery without angina pectoris; I25.2 Old myocardial infarction; Z82.49 Family history of ischemic heart disease and other diseases of the circulatory system; Z95.5 Presence of coronary angioplasty implant and graft; F10.20 Alcohol dependence, uncomplicated; M10.9 Gout, unspecified; Z71.6 Tobacco abuse counseling; R73.9 Hyperglycemia, unspecified
CPT/HCPCS: 92941; 93458; 96374; 96375; 99291; G0269; 36415; 71045; 80053; 80061; 80069; 80307; 81001; 82553; 83036; 83690; 83735; 83880; 84484; 85007; 85025; 85610; 85730; 93005; 93306; 99152; 99153; 99406; C1713; C1725; C1769; C1874; C1887; C1892; J0583; J1644; J2250; J2405; J3010; J3475; J3490; J7030; Q9967; G0378

== ENCOUNTER → 2020-09-25 | Outpatient (CLI) | payer OTHER ==
[~2020-09-25] MED LIST: ACET500T68 PO; ALLO100T PO; ASPI-886 PO; ATOR10TA PO; ATOR20TA58 PO; DOCU-148 PO; DULO60CA45 PO; HYDR-2145 PO; LISI-517 PO; LISI10TA16 PO; MELO15TA23 PO; METO25TA4 PO; NITR0.4T24 SL; OMEP20TA63 PO; TADA5TAB PO; TICA90TA PO
--- NOTE | 2020-09-25 12:58 | CARD ---
MR#: [id number] Date of Study: 09/25/2020 Ordering Physician: OZIEL EDMOND, Referring Physician: Hammad ANDRES: Alex King [facility] APPROVED REPORT EXAM: Two-dimensional and M-mode echocardiogram with Doppler and color Doppler. Other Information Quality : AverageHR: 55bpm Rhythm : NSR INDICATION Cardiac Disease: CAD RISK FACTORS Hypertension Obesity Hyperlipidemia Family History 2D DIMENSIONS Left Atrium(2D)4.4 (1.6-4.0cm)IVSd1.2 (0.7-1.1cm) Aortic Root(2D)3.7 (2.0-3.7cm)LVDd5.6 (3.9-5.9cm) LVOT Diameter2.3 (1.8-2.4cm)PWd1.2 (0.7-1.1cm) LVDs4.6 (2.5-4.0cm)FS (%) 16.9 % SV52.9 ml Aortic Valve AoV Peak Haroon.118.9cm/sAoV VTI25.9cm AO Peak GR.5.7mmHgLVOT Peak Haroon.87.5cm/s AO Mean GR.3mmHgAVA (VMAX)3.08cm2 Mitral Valve MV E Lqdsbogb67.9cm/sMV E Peak Gr.3mmHg MV DECEL [id number] A Uvtfoeia50.6cm/s MV E Mean Gr.1mmHgE/A Ratio0.9 Pulmonary Valve PV Peak Ofkyzyye81.0cm/s Tricuspid Valve TR P. [id number] Peak Gr.28mmHg Pulmonary Vein S1 Eaccxygd15.9cm/sD2 Wszyizyg86.4cm/s LEFT VENTRICLE The left ventricle is normal size. There is mild concentric left ventricular hypertrophy. The systoli c function is mildly impaired. The Ejection Fraction is estimated at 45%. There is minimal global hyp okinesis of the left ventricle. Transmitral Doppler flow pattern is Grade I-abnormal relaxation patte rn. No left ventricle thrombus noted on this study. There is no ventricular septal defect visualized. There is no left ventricular aneurysm. There is no mass noted in the left ventricle. RIGHT VENTRICLE The right ventricle is normal size. There is normal right ventricular wall thickness. The right ventr icular systolic function is normal. ATRIA The left atrium is mildly dilated. The right atrium size is normal. The interatrial septum is intact with no evidence for an atrial septal defect or patent foramen ovale as noted on 2-D or Doppler imagi ng. AORTIC VALVE The aortic valve is mildly sclerotic. Doppler and Color Flow revealed no significant aortic regurgita tion. There is no significant aortic valvular stenosis. There is no aortic valvular vegetation. MITRAL VALVE The mitral valve is normal in structure and function. There is no evidence of mitral valve prolapse. There is no mitral valve stenosis. Doppler and Color-flow revealed trace to mild mitral regurgitation . TRICUSPID VALVE The tricuspid valve is normal in structure and function. Doppler and Color Flow revealed trace tricus pid regurgitation. The PA pressure was estimated at 33 mmHg. There is no tricuspid valve prolapse or vegetation. There is no tricuspid valve stenosis. PULMONIC VALVE The pulmonary valve is normal in structure and function. Doppler and Color Flow revealed no pulmonic valvular regurgitation. There is no pulmonic valvular stenosis. GREAT VESSELS Aortic root is the upper limit of normal in size (3.7mm) The ascending aorta is normal in size. The p ulmonary artery is normal. The IVC is normal in size and collapses >50% with inspiration. PERICARDIAL EFFUSION There is no pleural effusion. There is no evidence of significant pericardial effusion. Critical Notification Critical Value: No <Conclusion> The left ventricle is normal size. The systolic function is mildly impaired. The Ejection Fraction is estimated at 45%. There is minimal global hypokinesis of the left ventricle. There is mild concentric left ventricular hypertrophy. Doppler and Color Flow revealed no significant aortic regurgitation. There is no significant aortic valvular stenosis. Doppler and Color-flow revealed trace to mild mitral regurgitation. Doppler and Color Flow revealed trace tricuspid regurgitation. The PA pressure was estimated at 33 mmHg. Signed by : Mukesh Lopez MD Electronically Approved : 09/25/2020 12:57:53
== END ==
LOC: ECHO 07:53
PROVIDERS: ATTEND Internal Medicine Cardiovascular Disease
DX: I08.0 Rheumatic disorders of both mitral and aortic valves (principal); I25.10 Atherosclerotic heart disease of native coronary artery without angina pectoris; I10 Essential (primary) hypertension; E78.5 Hyperlipidemia, unspecified; E66.9 Obesity, unspecified; Z68.42 Body mass index [BMI] 45.0-49.9, adult; Z87.898 Personal history of other specified conditions
CPT/HCPCS: 93306